=== PATIENT | male | born 1980 | race Caucasian/White ===

== ENCOUNTER 2023-10-05 07:03 | Emergency (ER) | payer MEDICAID, SELFPAY ==
[2023-10-05] VITALS (9 sets, daily range): BP systolic 128–138; BP diastolic 86–104; PULSE 69–100; RESP 16–20; TEMP 36.4–36.9; O2SAT 98–99; BMI 24.1
--- NOTE | ~2023-10-05 | XR_ITS ---
EXAMINATION: XR CHEST, 2 VIEWS CLINICAL INFORMATION: Chest pain COMPARISON: None. TECHNIQUE: PA and lateral views of the chest were obtained. FINDINGS: Lungs are borderline hyperexpanded though clear. No consolidation, pneumothorax, or pleural effusion. Cardiac and mediastinal contours are normal. Pulmonary vasculature is unremarkable. Trachea is midline. Osseous structures are unremarkable. XR/XR chest 2V IMPRESSION: No acute cardiopulmonary findings.
--- NOTE | 2023-10-05 07:08 | ECG_ITS ---
Test Reason : CHEST PAIN Blood Pressure : / mmHG Vent. Rate : 101 BPM Atrial Rate : 101 BPM P-R Int : 116 ms QRS Dur : 084 ms QT Int : 342 ms P-R-T Axes : 079 066 074 degrees QTc Int : 443 ms Sinus tachycardia Otherwise normal ECG No previous ECGs available Referred By: Gem Bullard Electronically Signed By:Zoltan Aparicio
--- NOTE | 2023-10-05 07:26 | ED_ITS ---
HPI - Chest Pain General Chief Complaint: Chest Pain Stated Complaint: chest discomfort, pain on L side of body Time Seen by Provider: 10/05/23 07:07 Source: patient Mode of arrival: ambulatory Limitations: no limitations History of Present Illness HPI narrative: Patient is a 43-year-old male who presents to the emergency department for evaluation of chest pain. He reports left anterior chest pain intermittently over the past 3 months. Described as a stabbing pressure-like pain. At times it lasts 2-3 hours before self-resolving, other times it may be more brief. He is unable to identify any exacerbating or alleviating factors. Was experiencing this pain while at work today and he was sent home, he states he needs a note to return back to work. At times the pain is associated with shortness of breath. He denies any known past medical history however he does not follow with a primary care doctor, he admits to a familial cardiac history but he is not able to provide much details. He admits to intranasal cocaine usage but states that he stopped approximately 2 months ago. He also admits to infrequent alcohol consumption, reports that he did drink yesterday, and states that he might drink once every few weeks, denies daily usage. He denies dizziness, lightheadedness, nausea, vomiting, abdominal pain, numbness or tingling of his extremities. Related Data Allergies Allergy/AdvReac Type Severity Reaction Status Date / Time sulfamethoxazole Allergy Severe KIDNEY Verified 10/05/23 07:18 [From BACTRIM] FAILURE trimethoprim [From BACTRIM] Allergy Severe KIDNEY Verified 10/05/23 07:18 FAILURE Iodinated Contrast Media Allergy Unknown UNKNOWN Verified 10/05/23 07:18 [IV DYE, IODINE CONTAINING CONTRAST ] Review of Systems 2 Review of Systems: Yes all other systems are reviewed and are negative [facility] Past Medical History Attestation statement: The following information was validated with the patient. Source: old records reviewed Social History Social History Alcohol intake: current Alcohol intake frequency: a few times a month Use of substances other than those prescribed or required for medical reasons: Yes Substance Use Type: Crack/Cocaine Substance Use Frequency: Monthly Substance Use Frequency Other:: Pt quit using 2 months ago Last Used Substance: Weeks (ago) Advance Directives: No Do you have a plan to hurt others: No Plan Physical Exam 2 Vital Signs: Vital Signs: Last Vital Signs Temp 98.4 F 10/05/23 10:42 Pulse 69 10/05/23 10:42 Resp 20 10/05/23 10:42 BP 134/96 H 10/05/23 10:42 Pulse Ox 99 10/05/23 10:42 O2 Del Method Room Air 10/05/23 10:42 BMI result Body Mass Index 24.1 Appearance: Alert.?Oriented to person, place and time. No acute distress.?Normal affect. Eyes: Pupils equal, round and reactive to light.? ENT: Pharynx normal.?? Neck: Normal inspection.? Neck supple.?? CVS: Heart sounds normal. Normal heart rate and rhythm.? Pulses normal.?? Respiratory: No respiratory distress.? Lung sounds clear to auscultation bilaterally?? Abdomen: Soft and non-tender. Normoactive bowel sounds. Skin: Skin warm and dry.? Normal skin color.? Extremities: No lower extremity edema.? No calf ttp? Neuro: Moves all extremities spontaneously. Sensation intact bilaterally. CN II- XII intact. No focal neuro deficits. Ambulates with normal steady gait. Course Reevaluation(s) Reevaluation #1: Labs notable for a mild [place], BUN 10 creatinine 1.55, however no baseline for comparison, he does admit that he does not drink a lot of water throughout the day. D-dimer is negative, unlikely pulmonary embolism, would defer CT angio of the chest for further evaluation he has no hypoxia tachypnea respiratory distress. High sensitive troponin is below detectable limits, his EKGs without acute ischemic findings though he is mildly tachycardic. Patient will receive 1 L normal saline IV fluids, will obtain repeat chemistries to assure improvement of creatinine in addition to delta troponin. Chest x-ray is without acute pathology, no evidence of pneumothorax or pneumonia. Viral panel is negative. Reevaluation #2: Serum creatinine 1.27 after receiving IV fluids, patient was encouraged to increase oral fluids especially during warm weather., delta troponin is flat, EKG non ischemic, pain unlikely secondary to ACS. Pain is much improved when compared to arrival. At this time I feel he is stable for discharge outpatient follow-up, reviewed worrisome signs and symptoms that would warrant re- evaluation in the emergency department. All questions answered. Medications Administered Discontinued Medications Generic Name Dose Route Start Last Admin Trade Name Freq PRN Reason Stop Dose Admin Sodium Chloride 1,000 mls @ 999 mls/hr 10/05/23 10:00 10/05/23 10:52 Ns IV 10/05/23 11:00 Infused .Q1H1M JACE Infusion Nitroglycerin 0.5 inch 10/05/23 07:56 10/05/23 08:13 Nitroglycerin 2 % Oint 1 Gm Packet TRANSDERMA 10/05/23 07:57 0.5 inch ONCE ONE Administration Medical Decision Making Medical Decision Making [facility] Narrative: Patient is a 43-year-old male with no reported past medical history presenting to emergency department for evaluation of intermittent left anterior chest pain as per HPI. At the time my examination he appears overall well, he is mildly tachycardic, no respiratory distress, he is afebrile, he is able to speak clear full sentences. Pain does not appear to be reproducible upon palpation. He admits to infrequent substance usage as per HPI. Will obtain CBC to evaluate for leukocytosis/ anemia, CMP and lipase to evaluate for abnormal electrolytes /abnormal renal function/ abnormal hepatic/biliary function, EKG and troponin to evaluate for ischemia/ACS. Chest x-ray to evaluate for consolidation/ infiltrate/ mass/ pulmonary congestion and Urinalysis. Differential Diagnosis Differential Diagnoses: The differential diagnosis associated with the presentation includes (ACS, pulmonary embolism, gastritis, musculoskeletal pain, viral syndrome) Admission/Observation Consideration of admission/observation: Escalation of care including admission/observation considered Lab Data [facility] Lab Attestation statement: I reviewed the patient's lab results. 10/05/23 07:50 10/05/23 10:56 Labs: Lab Results 10/05/23 10/05/23 10/05/23 Range/Units 07:50 08:44 09:19 WBC 6.0 (4.8-10.8) X10*3/uL RBC 6.20 H (4.60-5.80) X10*6/uL Hgb 18.1 H (14.0-18.0) g/dl Hct 51.6 (42.0-52.0) % MCV 83.2 (80.0-98.0) fL MCH 29.2 (27.0-33.0) pg MCHC 35.1 (31.0-36.0) g/dl RDW 13.1 (11.0-16.0) % Plt Count 213 (160-400) X10*3/uL MPV 9.8 (9.4-12.4) fL Immature Gran % (Auto) 0.3 (0.0-0.4) % Neut % (Auto) 61.4 (45-73) % Lymph % (Auto) 30.0 (20-40) % Snyder % (Auto) 7.7 (2-11) % Eos % (Auto) 0.3 (0-4) % Baso % (Auto) 0.3 (0-2) % Lymph # (Auto) 1.8 (1.2-4.9) X10*3/uL Snyder # (Auto) 0.5 (0.1-1.2) X10*3/uL Eos # (Auto) 0.0 (0.0-0.4) X10*3/uL Baso # (Auto) 0.0 (0.0-0.2) X10*3/uL Abs Immat Gran (auto) 0.02 (0.00-0.03) X10*3/uL Absolute Neuts (auto) 3.7 (2.0-8.3) x10*3/uL Absolute Nucleated RBC 0.000 (0.0-0.012) X10*3/uL Nucleated RBC % (auto) 0.0 (0.0-0.2) /100WBC PT 12.1 (11.1-13.3) SEC INR 1.0 (0.9-1.1) D-Dimer High Sensitivty < 150 NG/ML Sodium 140 (135-145) mmol/L Potassium 3.8 (3.3-5.1) mmol/L Chloride 106 (96-108) mmol/L Carbon Dioxide 22 (22-29) mmol/L Anion Gap 16 (12-20) BUN 10 (9-16) mg/dL Creatinine 1.55 H (0.5-1.4) mg/dL Estim Creat Clear Calc 57.4 Estimated GFR 49 Random Glucose 92 (60-115) mg/dL Calcium 10.2 (8.4-10.2) mg/dL Magnesium 2.0 (1.6-2.6) mg/dL Total Bilirubin 1.0 (0.0-1.0) mg/dL AST 17 (5-37) U/L ALT 17 (0-40) U/L Alkaline Phosphatase 71 (39-117) U/L Troponin I High Sens < 2.7 (<3.5-35.0) ng/L Total Protein 7.7 (6.5-8.0) g/dL Albumin 4.5 (3.5-5.0) g/dL Lipase 25 (8-78) U/L Urine Color Dark Yellow Urine Appearance Clear Urine pH 6.0 (5.0-9.0) Ur Specific [place] 1.020 (1.005-1.025) Urine Protein 30 (1+) H (Neg-Trace) mg/dL Urine Glucose (UA) Negative (Negative) mg/dL Urine Ketones 15 (Negative) mg/dL Urine Blood Negative (Negative) Urine Nitrite Negative (Negative) Ur Leukocyte Esterase Trace H (Negative) Urine RBC 0-2 (0-2) /HPF Urine WBC 0-5 (0-5) /HPF Ur Squamous Epith Cells 0-2 (0-2) /HPF Urine Bacteria None Seen (None Seen) Hyaline Casts 3-5 (0-2) /LPF Urine Opiates Screen Not Detected (Not Detect) Ur Buprenorphine Scrn Not Detected (Not Detect) ng/mL Ur Oxycodone Screen Not Detected (Not Detect) ng/mL Urine Methadone Screen Not Detected (Not Detect) ng/mL Urine Fentanyl Screen Not Detected (Not Detect) Ur Barbiturates Screen Not Detected (Not Detect) Ur Phencyclidine Scrn Not Detected (Not Detect) Ur Amphetamines Screen Not Detected (Not Detect) U Benzodiazepines Scrn Not Detected (Not Detect) Urine Cocaine Screen Not Detected (Not Detect) U Marijuana (THC) Screen POSITIVE H (Not Detect) Influenza Type A (PCR) NEGATIVE (Negative) Influenza Type B (PCR) NEGATIVE (Negative) RSV RNA Qual (PCR) NEGATIVE (Negative) SARS-CoV-2 RNA (RT-PCR) NEGATIVE (Negative) 10/05/23 Range/Units 10:56 WBC (4.8-10.8) X10*3/uL RBC (4.60-5.80) X10*6/uL Hgb (14.0-18.0) g/dl Hct (42.0-52.0) % MCV (80.0-98.0) fL MCH (27.0-33.0) pg MCHC (31.0-36.0) g/dl RDW (11.0-16.0) % Plt Count (160-400) X10*3/uL MPV (9.4-12.4) fL Immature Gran % (Auto) (0.0-0.4) % Neut % (Auto) (45-73) % Lymph % (Auto) (20-40) % Snyder % (Auto) (2-11) % Eos % (Auto) (0-4) % Baso % (Auto) (0-2) % Lymph # (Auto) (1.2-4.9) X10*3/uL Snyder # (Auto) (0.1-1.2) X10*3/uL Eos # (Auto) (0.0-0.4) X10*3/uL Baso # (Auto) (0.0-0.2) X10*3/uL Abs Immat Gran (auto) (0.00-0.03) X10*3/uL Absolute Neuts (auto) (2.0-8.3) x10*3/uL Absolute Nucleated RBC (0.0-0.012) X10*3/uL Nucleated RBC % (auto) (0.0-0.2) /100WBC PT (11.1-13.3) SEC INR (0.9-1.1) D-Dimer High Sensitivty NG/ML Sodium 140 (135-145) mmol/L Potassium 4.1 (3.3-5.1) mmol/L Chloride 108 (96-108) mmol/L Carbon Dioxide 22 (22-29) mmol/L Anion Gap 14 (12-20) BUN 10 (9-16) mg/dL Creatinine 1.27 (0.5-1.4) mg/dL Estim Creat Clear Calc 70.1 Estimated GFR > 60 Random Glucose 86 (60-115) mg/dL Calcium 9.0 D (8.4-10.2) mg/dL Magnesium (1.6-2.6) mg/dL Total Bilirubin (0.0-1.0) mg/dL AST (5-37) U/L ALT (0-40) U/L Alkaline Phosphatase (39-117) U/L Troponin I High Sens < 2.7 (<3.5-35.0) ng/L Total Protein (6.5-8.0) g/dL Albumin (3.5-5.0) g/dL Lipase (8-78) U/L Urine Color Urine Appearance Urine pH (5.0-9.0) Ur Specific [place] (1.005-1.025) Urine Protein (Neg-Trace) mg/dL Urine Glucose (UA) (Negative) mg/dL Urine Ketones (Negative) mg/dL Urine Blood (Negative) Urine Nitrite (Negative) Ur Leukocyte Esterase (Negative) Urine RBC (0-2) /HPF Urine WBC (0-5) /HPF Ur Squamous Epith Cells (0-2) /HPF Urine Bacteria (None Seen) Hyaline Casts (0-2) /LPF Urine Opiates Screen (Not Detect) Ur Buprenorphine Scrn (Not Detect) ng/mL Ur Oxycodone Screen (Not Detect) ng/mL Urine Methadone Screen (Not Detect) ng/mL Urine Fentanyl Screen (Not Detect) Ur Barbiturates Screen (Not Detect) Ur Phencyclidine Scrn (Not Detect) Ur Amphetamines Screen (Not Detect) U Benzodiazepines Scrn (Not Detect) Urine Cocaine Screen (Not Detect) U Marijuana (THC) Screen (Not Detect) Influenza Type A (PCR) (Negative) Influenza Type B (PCR) (Negative) RSV RNA Qual (PCR) (Negative) SARS-CoV-2 RNA (RT-PCR) (Negative) Independent Interpretation I performed an independent interpretation of an: EKG and Plain X-Ray (No infiltrate or consolidations) Interpretation: Rate: 101 Rhythm:? Sinus tachycardia [place]:? Normal Normal P waves.? Normal [place].?? Normal QRS complex.?? ST T wave :??No ST elevation, no ST depression, no T-wave inversion qTC: 443 prior studies:? No prior available for review The study has been interpreted contemporaneously by me. Radiology Impression Discussion of test interpretation with radiology: I have reviewed the radiologist's reading. Radiologist Impression: XR/XR chest 2V IMPRESSION: No acute cardiopulmonary findings. Discharge Plan Discharge Clinical Impression: Chest pain Patient Disposition: Home, Self-Care Additional Instructions: You can take ibuprofen 200 mg, 3 tablets (600mg) every 6-8 hours as needed for pain, in addition to Tylenol 500 mg, 2 tablets (1,000mg) every 4-6 hours as needed for pain, but not to exceed 3 doses daily (3,000mg).? Please be sure that you are staying well hydrated and drinking plenty of fluids especially during these warm summer months. It is important that you follow-up closely with the primary care provider. You may return back to emergency department any new or worsening symptoms or concerns. Referrals: Physician,None [Primary Care Provider] - Stand Alone Forms: Work/School Release Print Language: [place]
[2023-10-05 07:56] LABS: MANUAL DIFF FLAG NO
[2023-10-05 07:57] LABS: Basophils Percent Auto 0.3 % (0-2); Eosinophils Percent Auto 0.3 % (0-4); Hematocrit 51.6 % (42.0-52.0); Hemoglobin 18.1 g/dl (14.0-18.0); Imm Gran Abs Auto 0.02 X10*3/uL (0.00-0.03); Imm Gran Pct Auto 0.3 % (0.0-0.4); Lymphocytes Absolute Auto 1.8 X10*3/uL (1.2-4.9); Mean Corpuscular HGB Conc 35.1 g/dl (31.0-36.0); Mean Corpuscular Hemoglobin 29.2 pg (27.0-33.0); Mean Corpuscular Volume 83.2 fL (80.0-98.0); Mean Platelet Volume 9.8 fL (9.4-12.4); Monocytes Absolute Auto 0.5 X10*3/uL (0.1-1.2); Monocytes Percent Auto 7.7 % (2-11); Neutrophils Absolute Auto 3.7 x10*3/uL (2.0-8.3); Neutrophils Percent Auto 61.4 % (45-73); Platelet Count 213 X10*3/uL (160-400); Red Cell Distribution Width 13.1 % (11.0-16.0)
[2023-10-05 08:08] LABS: Prothrombin Time 12.1 SEC (11.1-13.3)
[2023-10-05] MEDS: Nitroglycerin 2 % Oint 1 GM Packet 0.5 INCH TRANSDERMA (08:13)
[2023-10-05 08:23] LABS: Alanine Aminotransferase 17 U/L (0-40); Albumin Level 4.5 g/dL (3.5-5.0); Alkaline Phosphatase 71 U/L (39-117); Anion Gap 16 (12-20); Aspartate Amino Transferase 17 U/L (5-37); Blood Urea Nitrogen 10 mg/dL (9-16); Calcium 10.2 mg/dL (8.4-10.2); Carbon Dioxide 22 mmol/L (22-29); Chloride 106 mmol/L (96-108); Creatinine Clr Calc Pharmacy 57.4; Estimated Glomerular Filt Rate 49; Glucose Random 92 mg/dL (60-115); Lipase 25 U/L (8-78); Potassium 3.8 mmol/L (3.3-5.1); Sodium 140 mmol/L (135-145); Total Protein 7.7 g/dL (6.5-8.0)
[2023-10-05 08:33] LABS: Troponin-I High Sensitivity < 2.7 ng/L (<3.5-35.0)
[2023-10-05 08:58] LABS: D Dimer High Sensitivity < 150 NG/ML
[2023-10-05 09:16] LABS: Influenza A PCR NEGATIVE (Negative); Influenza B PCR NEGATIVE (Negative); Resp Syncy Virus RNA Qual PCR NEGATIVE (Negative); SARS COV2 PCR INHOUSE NEGATIVE (Negative)
[2023-10-05 09:29] LABS: Appearance Urine Clear; Color Urine Dark Yellow; Glucose Urine UA Negative (Negative); Leukocyte Esterase Urine Trace (Negative); Nitrite Urine Negative (Negative); UMIC TRIGGER UACC YES; Urine Blood Negative (Negative); Urine Ketones 15 mg/dL (Negative); Urine Protein 30 (1+) mg/dL (Neg-Trace)
[2023-10-05 09:34] LABS: Bacteria Urine None Seen (None Seen); RBC Urine 0-2 /HPF (0-2); Squamous Epithelial Cell Urine 0-2 /HPF (0-2); WBC Urine 0-5 /HPF (0-5)
--- NOTE | 2023-10-05 09:36 | PC.NURSE ---
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 Pt medicated per MAR for pain, has since decreased from a 10 to a 6. Pt did feel dizzy/headache from the 0.5 nitro paste given, has since subsided. BPs have been updated, pt was hypertensive (138/104), most recent blood pressure 128/94, BPs cycling q 5 min d/t nitro paste given. Pt family member at bedside, call forbes within reach, all needs met at this time.
[2023-10-05 09:39] LABS: Amphetamine Screen Urine Not Detected (Not Detect); Barbiturates, Urine Not Detected (Not Detect); Benzodiazepines Screen Urine Not Detected (Not Detect); Buprenorphine Scr Not Detected (Not Detect); Cannabinoid Screen Urine POSITIVE (Not Detect); Cocaine Screen Urine Not Detected (Not Detect); Fentanyl, urine Not Detected (Not Detect); Methadone Screen, Urine Not Detected (Not Detect); Opiate Screen Urine Not Detected (Not Detect); Oxycodone Screen Urine Not Detected (Not Detect); Phencyclidine Screen Urine Not Detected (Not Detect)
[2023-10-05] MEDS: 0.9 % Sodium Chloride 1,000 ML 999 ML IV (09:51)
--- NOTE | 2023-10-05 10:09 | PC.NURSE ---
Repeat labs to be obtained after liter of fluids is finished, pt aware of ongoing plan of care, call forbes within reach, family at bedside.
[2023-10-05 11:18] LABS: Anion Gap 14 (12-20); Blood Urea Nitrogen 10 mg/dL (9-16); Carbon Dioxide 22 mmol/L (22-29); Chloride 108 mmol/L (96-108); Creatinine Clr Calc Pharmacy 70.1; Estimated Glomerular Filt Rate > 60; Glucose Random 86 mg/dL (60-115); Potassium 4.1 mmol/L (3.3-5.1); Sodium 140 mmol/L (135-145)
[2023-10-05 11:24] LABS: Troponin-I High Sensitivity < 2.7 ng/L (<3.5-35.0)
== END 2023-10-05 12:05 | disposition home or self-care (01) ==
PROVIDERS: Nurse Practitioner Family; Emergency Provider Emergency Medicine
DX: R07.9 Chest pain, unspecified (principal); R06.02 Shortness of breath; Z03.818 Encounter for observation for suspected exposure to other biological agents ruled out; R00.0 Tachycardia, unspecified
CPT/HCPCS: 0241U; 36415; 71046; 80048; 80053; 80307; 81001; 83690; 83735; 84484; 85025; 85379; 85610; 93005; 96361; 96374; 99284; 99285; J1885

== ENCOUNTER → 2023-10-05 07:08 | Outpatient (BNV) | payer MEDICAID, SELFPAY | PROVIDERS: Emergency Provider Emergency Medicine; Visit Provider Internal Medicine Cardiovascular Disease | DX: R07.9 Chest pain, unspecified (principal) | CPT/HCPCS: 93010 ==

== ENCOUNTER 2023-10-09 19:00 | Emergency (ER) | payer OTHER, MEDICAID, SELFPAY ==
[2023-10-09 19:04] VITALS: BP 143/93; PULSE 85; RESP 18; TEMP 36.4; O2SAT 95; BMI 23.5
--- NOTE | 2023-10-09 19:41 | ED_ITS ---
HPI - Skin/Abscess/Foreign Bdy General Chief complaint: Skin/Abscess/Foreign Body Stated complaint: RT hand inj/lac Time Seen by Provider: 10/09/23 19:06 Related Data Allergies Allergy/AdvReac Type Severity Reaction Status Date / Time sulfamethoxazole Allergy Severe KIDNEY Verified 10/09/23 19:07 [From BACTRIM] FAILURE trimethoprim [From BACTRIM] Allergy Severe KIDNEY Verified 10/09/23 19:07 FAILURE Iodinated Contrast Media Allergy Unknown UNKNOWN Verified 10/09/23 19:07 [IV DYE, IODINE CONTAINING CONTRAST ] PMFSH Social History Social History Alcohol intake: current Alcohol intake frequency: a few times a month Substance Use Type: Crack/Cocaine Advance Directives: No Advance Directives Information Provided: No Physical Exam Vital Signs: Vital Signs: Last Vital Signs Temp 97.6 F 10/09/23 19:04 Pulse 85 10/09/23 19:04 Resp 18 10/09/23 19:04 BP 143/93 H 10/09/23 19:04 Pulse Ox 95 10/09/23 19:04 O2 Del Method Room Air 10/09/23 19:04 BMI result Body Mass Index 23.5 Discharge Plan Discharge Print Language: [place]ill[place]
--- NOTE | 2023-10-09 19:42 | ED_ITS ---
HPI - Burn/Smoke Inhalation General Chief complaint: Skin/Abscess/Foreign Body Stated complaint: RT hand inj/lac Time Seen by Provider: 10/09/23 19:06 Source: patient Mode of arrival: ambulatory Limitations: no limitations History of Present Illness HPI Narrative: Patient is a 43-year-old male who presents emergency department for evaluation. He is right-hand dominant, reports while at work he was attempting to clean the oil from a prior, he was using a device to do so but reports that his hand accidentally slipped and submerged in 2 hot oil. This occurred approximately 90 minutes prior to arrival. He reports 8/10 pain to the right hand. He has no open wounds lesions or blistering, there is very mild erythema. He has full range of motion to the fingers as well as the wrist. He denies any numbness or tingling. Related Data Previous Rx's ?Medication ?Instructions ?Recorded bacitracin 500 unit/gram topical 1 appl topical BID #28 grams 10/09/23 ointment Allergies Allergy/AdvReac Type Severity Reaction Status Date / Time sulfamethoxazole Allergy Severe KIDNEY Verified 10/09/23 19:07 [From BACTRIM] FAILURE trimethoprim [From BACTRIM] Allergy Severe KIDNEY Verified 10/09/23 19:07 FAILURE Iodinated Contrast Media Allergy Unknown UNKNOWN Verified 10/09/23 19:07 [IV DYE, IODINE CONTAINING CONTRAST ] Review of Systems Review of Systems: Yes all other systems are reviewed and are negative [facility] Past Medical History Attestation statement: The following information was validated with the patient. Source: old records reviewed Social History Social History Alcohol intake: current Alcohol intake frequency: a few times a month Substance Use Type: Crack/Cocaine Advance Directives: No Advance Directives Information Provided: No Physical Exam Vital Signs: Vital Signs: Last Vital Signs Temp 97.6 F 10/09/23 19:04 Pulse 85 10/09/23 19:04 Resp 18 10/09/23 19:04 BP 143/93 H 10/09/23 19:04 Pulse Ox 95 10/09/23 19:04 O2 Del Method Room Air 10/09/23 19:04 BMI result Body Mass Index 23.5 Appearance: Alert.?Oriented to person, place and time. No acute distress.?Normal affect. CVS: Heart sounds normal. Normal heart rate and rhythm.? Pulses normal.?? Respiratory: No respiratory distress.? Lung sounds clear to auscultation bilaterally?? Abdomen: Soft and non-tender. Normoactive bowel sounds. Skin: Skin warm and dry.? Normal skin color.? Very mild blanchable erythema of the dorsal aspect of the right hand. No blistering, no lesions Extremities: No lower extremity edema.? Neuro: Moves all extremities spontaneously. Sensation intact bilaterally. Ambulates with normal steady gait. Medical Decision Making Medical Decision Making MDM Narrative: Patient is a 43-year-old male who presents emergency department for evaluation of an oil burn to the right hand that occurred while at work. Examination is consistent with a superficial burn to the hand; 1%. No circumferential erythema, banding, or blistering. Was irrigated extensively with cool tap water followed by normal saline. Skin is intact at this time. He has full range of motion to the wrist in the digits. Extremity is neurovascularly intact distally. At this time feel that he is stable for discharge, discussed strict return precautions, worrisome signs and symptoms that would warrant re- evaluation in the emergency department, topical bacitracin Differential Diagnosis Differential Diagnoses: The differential diagnosis associated with the presentation includes (See narrative above) External Record Review External record reviewed: Outpatient record Prescription Management I considered prescription management with: Antibiotic Discharge Plan Discharge Clinical Impression: Superficial burn of right hand Patient Disposition: Home, Self-Care Instructions: Superficial Burn (ED) Additional Instructions: Cleansed twice daily with warm water mild non scented soap. Apply bacitracin Follow-up with primary care doctor. Return back to emergency department any new or worsening symptoms or concerns. You can take ibuprofen 200 mg, 3 tablets (600mg) every 6-8 hours as needed for pain, in addition to Tylenol 500 mg, 2 tablets (1,000mg) every 4-6 hours as needed for pain, but not to exceed 3 doses daily (3,000mg).? Prescriptions: New bacitracin 500 unit/gram ointment 1 appl topical BID Qty: 28 0RF Print Language: [place]
--- NOTE | 2023-10-09 20:04 | PC.NURSE ---
pt burn on right hand cleansed with NS, patted dry. followed by bacitracin, nonstick dressing, kerlix and tape. pt tolerated procedure well- verbalizes understanding of DC teaching
[2023-10-09 20:05] VITALS: BP 143/93; PULSE 85; RESP 18; TEMP 36.4; O2SAT 95
== END 2023-10-09 20:05 | disposition home or self-care (01) ==
PROVIDERS: Emergency Provider Emergency Medicine
DX: T23.101A Burn of first degree of right hand, unspecified site, initial encounter (principal); T31.0 Burns involving less than 10% of body surface; X10.2XXA Contact with fats and cooking oils, initial encounter; Y93.G3 Activity, cooking and baking; Y92.89 Other specified places as the place of occurrence of the external cause; Y99.0 Civilian activity done for income or pay
CPT/HCPCS: 99283; 99284

== ENCOUNTER 2024-12-17 18:10 | Emergency (ER) | payer MEDICAID, SELFPAY ==
--- NOTE | ~2024-12-17 | XR_ITS ---
CLINICAL HISTORY: cough, body aches 2 view chest x-ray Comparison: CR/SR - XR CHEST 2 VIEWS - 10/05/23 07:23 EDT Findings: Normal size heart. Lungs are mildly hyperinflated. No consolidation, pleural effusion or pneumothorax. No acute fracture. IMPRESSION: 1. No acute findings. This document has been electronically signed by: Karlene Parra MD on 12/17/2024 21:28:49
--- NOTE | 2024-12-17 18:35 | ED.GENADULT ---
HPI - General Adult General Chief complaint: Upper Respiratory Symptoms Stated complaint: headache, sore throat, bodyaches, difficulty breat Time Seen by Provider: 12/17/24 21:05 Source: patient and old records reviewed Mode of arrival: ambulatory Limitations: no limitations History of Present Illness ED Provider: ALMITA COONEY narrative: 44 yo male with PMH of asthma but no recent bouts or use of inhaler who has been sick with body aches, cough, sputum, chills and sore throat. 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 He came due to the past week he is getting worse and not better. He can eat and drink MD complaint: URI Onset (ago): week(s) (1) Location: mouth and chest Radiation: non-radiation Severity: mild Quality: aching Pain Consistency: constant Relieving factors: none Exacerbating factors: none Associated symptoms: cough and loss of appetite Treatments prior to arrival: none Related Data Previous Rx's ?Medication ?Instructions ?Recorded bacitracin 500 unit/gram topical 1 appl topical BID #28 grams 10/09/23 ointment albuterol sulfate 90 mcg/actuation 2 puff inhalation QID PRN 12/17/24 aerosol inhaler shortness of breath or wheezing #6.7 grams amoxicillin 875 mg-potassium 1 tab PO BID #13 tabs 12/17/24 clavulanate 125 mg tablet doxycycline hyclate 100 mg capsule 100 mg PO BID 7 days #14 caps 12/17/24 Allergies Allergy/AdvReac Type Severity Reaction Status Date / Time sulfamethoxazole (From Allergy Severe KIDNEY Verified 12/17/24 18:38 BACTRIM) FAILURE trimethoprim (From BACTRIM) Allergy Severe KIDNEY Verified 12/17/24 18:38 FAILURE Iodinated Contrast Media (IV Allergy Unknown UNKNOWN Verified 12/17/24 18:38 DYE, IODINE CONTAINING CONTRAST ) Butterfinger Allergy Angioedema Uncoded 12/17/24 18:41 Review of Systems Review of Systems: Constitutional : positive Chills, positive fatigue, positive Malaise ENT/Mouth : positive sore throat, positive runny nose Eyes: No Discharge Cardiovascular : No Chest Pain, No SOB Respiratory : pos Cough, pos Sputum Gastrointestinal : No Nausea, No Vomiting, No Diarrhea Genitourinary : No Dysuria, No Urinary Frequency Musculoskeletal : positive Myalgia Skin : No rash Neuro : No Headache Yes all other systems are reviewed and are negative [facility] Past Medical History Attestation statement: The following information was validated with the patient. Source: old records reviewed Medical History (Updated 12/17/24 @ 21:35 by Silvia Sharma DO) Asthma Social History Social History Alcohol intake: current Alcohol intake frequency: a few times a month Substance Use Type: Crack/Cocaine Advance Directives: No Advance Directives Information Provided: Yes Physical Exam ED Vital Signs: Vital Signs - 24 hr 12/17/24 18:37 Temperature 98.2 F Pulse Rate 86 Respiratory Rate 20 Blood Pressure 124/75 Pulse Oximetry 97 Oxygen Delivery Method Room Air BMI result Body Mass Index 24.6 Appearance: Alert. Oriented X3. No acute distress. Eyes: Pupils equal, round and reactive to light. ENT: Pharynx mild erythema no exudates, tongue is midline. Neck: Normal inspection. Neck supple. CVS: Normal heart rate and rhythm. Pulses normal. Respiratory: No respiratory distress. Breath sounds R base diminished and fine rales Abdomen: Soft and nontender. Skin: Skin warm and dry. Normal skin color. Extremities: No lower extremity edema. Neuro: Oriented X 3. No motor deficit. No sensory deficit. CN2-12 intact Course Course Course Narrative: This is a rapid medical exam performed by Brianna Plascencia NP: Additional HPI, ROS, PE not included below will be deferred to primary provider. Patient is a 44y/o M presenting with complaint of sore throat, headache, chills, body aches x 1 week. Plan: viral and strep swabs, cxr Medical Decision Making Medical Decision Making [facility] Narrative: 44 yo male with PMH of asthma here ill x 1 week with concern for pneumonia on exam. He has no other risk factors other than sick contacts at work. He is well hydrated and in no resp distress. Will obtain CXR and viral panel. Start on CAP coverage pending CXR Differential Diagnosis Differential Diagnoses: The differential diagnosis associated with the presentation includes pneumonia, bronchitis, viral syndrome Admission/Observation Consideration of admission/observation: Escalation of care including admission/observation considered tolerating PO no resp distress Lab Data [facility] Lab Attestation statement: I reviewed the patient's lab results. Labs: Lab Results 12/17/24 Range/Units 18:47 COVID-19 (YOLY) Negative (Negative) COVID-19 Clin Com See Note Influenza Type A (MEHDI) Negative (Negative) Influenza Type B (MEHDI) Negative (Negative) Influenza A & B Note See Note S. pyogenes GrpA MEHDI Negative (Negative) Independent Interpretation I performed an independent interpretation of an: Plain X-Ray (RML opacity) Radiology Impression Discussion of test interpretation with radiology: I have reviewed the radiologist's reading. External Record Review External record reviewed: Outpatient record Prescription Management I considered prescription management with: Antibiotic and Other Discharge Plan Discharge Clinical Impression: CAP (community acquired pneumonia) Qualifiers: Laterality: right Lung location: middle lobe of lung Qualified Code(s): J18.9 - Pneumonia, unspecified organism Patient Disposition: Home, Self-Care Instructions: Community Acquired Pneumonia (ED) Additional Instructions: negative for covid, flu, rsv, strep throat chest xray shows pneumonia return for fevers, vomiting, unable to breathe, worsening symptoms or any other concerns rest and stay hydrated On amoxicillin-clavulanate, softer bowel movements are to be expected. Call your provider if you move your bowels more than 4 times a day, your bowel movements are almost all liquid, or you get a rash.? On doxycycline, do not take pills immediately before going to bed and swallow pills with plenty of water. Avoid direct sunlight, iron, antacids, and Pepto Bismol. Call your provider if you develop new ringing in your ears, new problems hearing, dizziness, difficulty swallowing, rash, abdominal discomfort, nausea, or diarrhea.? Prescriptions: New doxycycline hyclate 100 mg capsule 100 mg PO BID 7 Days Qty: 14 0RF albuterol sulfate 90 mcg/actuation HFA aerosol inhaler 2 puff inhalation QID PRN (Reason: shortness of breath or wheezing) Qty: 6.7 0RF amoxicillin-pot clavulanate 875-125 mg tablet 1 tab PO BID Qty: 13 0RF No Action bacitracin 500 unit/gram ointment 1 appl topical BID Qty: 28 0RF Stand Alone Forms: Work/School Release Print Language: Hong Konger
[2024-12-17 18:37] VITALS: BP 124/75; PULSE 86; RESP 20; TEMP 36.8; O2SAT 97; BMI 24.6
[2024-12-17 19:06] LABS: IDNOW Serial# 08D9AD1C; Strep A Nucleic Acid Negative (Negative)
[2024-12-17 19:12] LABS: IDNOW Serial# 58CA691E; Influenza B2 Negative (Negative)
[2024-12-17 19:13] LABS: COVID-19 Test Negative (Negative); IDNOW Serial# 55D5AD1C
[2024-12-17 21:33] VITALS: BP 124/75; PULSE 86; RESP 20; TEMP 36.8; O2SAT 97
== END 2024-12-17 21:34 | disposition home or self-care (01) ==
PROVIDERS: Registered Nurse Emergency; Emergency Provider Emergency Medicine
DX: J18.9 Pneumonia, unspecified organism (principal); R05.9 Cough, unspecified; R52 Pain, unspecified; J02.9 Acute pharyngitis, unspecified
CPT/HCPCS: 71046; 87502; 87635; 87651; 99282; 99283

== ENCOUNTER → 2024-12-17 18:36 | Outpatient (BNV) | payer MEDICAID, SELFPAY | PROVIDERS: Emergency Provider Emergency Medicine; Visit Provider Specialist | DX: R05.9 Cough, unspecified (principal); M79.10 Myalgia, unspecified site | CPT/HCPCS: 71046 ==

== ENCOUNTER 2024-12-22 12:26 | Emergency (ER) | payer MEDICAID, SELFPAY ==
[2024-12-22 12:49] VITALS: BP 133/73; PULSE 95; RESP 16; TEMP 36.7; O2SAT 95; BMI 24.8
--- NOTE | 2024-12-22 12:49 | ED.GENADULT ---
HPI - General Adult General Chief complaint: Upper Respiratory Symptoms Stated complaint: headache, congestion Time Seen by Provider: 12/22/24 19:35 Source: patient Mode of arrival: ambulatory Limitations: no limitations History of Present Illness ED Provider: Geovanny Rich HPI narrative: 44 yold male presents to the ED for heaache, boydaches, coughing, and congestion presents to the ED for contious symptoms and needs an excuse note for missing work. Patient states he needs more days off from work, and PCP states he has to come to the ED for work note. patient denies any chest pain or shorntess of breath. Related Data Previous Rx's ?Medication ?Instructions ?Recorded bacitracin 500 unit/gram topical 1 appl topical BID #28 grams 10/09/23 ointment albuterol sulfate 90 mcg/actuation 2 puff inhalation QID PRN 12/17/24 aerosol inhaler shortness of breath or wheezing #6.7 grams amoxicillin 875 mg-potassium 1 tab PO BID #13 tabs 12/17/24 clavulanate 125 mg tablet doxycycline hyclate 100 mg capsule 100 mg PO BID 7 days #14 caps 12/17/24 prednisone 20 mg tablet 40 mg (2 x 20 mg) PO DAILY 5 days 12/22/24 #10 tabs Allergies Allergy/AdvReac Type Severity Reaction Status Date / Time sulfamethoxazole (From Allergy Severe KIDNEY Verified 12/22/24 12:51 BACTRIM) FAILURE trimethoprim (From BACTRIM) Allergy Severe KIDNEY Verified 12/22/24 12:51 FAILURE Iodinated Contrast Media (IV Allergy Unknown UNKNOWN Verified 12/22/24 12:51 DYE, IODINE CONTAINING CONTRAST ) Butterfinger Allergy Angioedema Uncoded 12/17/24 18:41 Review of Systems Review of Systems: Coughing, headache, body ache Yes all other systems are reviewed and are negative PMFSH Past Medical History Medical History (Updated 12/23/24 @ 00:01 by Sixto Martinez) Asthma Social History Social History Alcohol intake: current Alcohol intake frequency: a few times a month Substance Use Type: Crack/Cocaine Advance Directives: No Advance Directives Information Provided: Yes Do you have a plan to hurt others: No Plan Physical Exam ED Vital Signs: Vital Signs - 24 hr 12/22/24 19:05 12/22/24 21:06 Temperature 0 F L Pulse Rate 73 73 Respiratory Rate 18 18 Blood Pressure 129/87 129/87 Pulse Oximetry 97 97 Oxygen Delivery Method Room Air Room Air BMI result Body Mass Index 24.8 Const General: cooperative, healthy appearing, comfortable, no acute distress, well developed, alert and awake [facility] Head: Yes normal to inspection, Yes No palpable skull fracture present, Yes normocephalic and Yes atraumatic Ears: hearing grossly normal bilaterally, external ears normal, TM's normal bilaterally, TM normal on the right, TM normal on the left, EAC's normal, mastoids normal and no periauricular adenopathy Throat: Yes posterior oropharynx normal, Yes tonsils normal and Yes uvula midline Eyes General: appearance normal, both eyes and all related structures Neck Neck: Yes normal visual inspection, Yes full ROM, Yes no lymphadenopathy, Yes no meningeal signs, Yes trachea midline, Yes supple, No anterior neck swelling and No tender Chest Chest palpation & inspection: normal inspection of the chest and normal palpation of entire chest wall Resp Effort & Inspection: normal respiratory effort Auscultation: wheezes expiratory wheezes (wheezing) Cardio Jugular venous distension: no JVD Heart sounds: S1 normal heart sound present and S2 normal heart sound present GI Inspection: Yes normal to inspection Palpation (GI): Soft to palpation, not firm, nontender, no guarding and not rigid General: Yes no CVA tenderness Back/Spine/Pelvis Back: no CVA tenderness and No back tenderness Skin General skin exam: no rashes or lesions noted, elasticity normal and turgor normal Neuro General: gait normal, tone normal, moves all extremities, Normal light touch and pain sensation, no meningeal signs, no focal motor deficits, CN's II-XI intact bilaterally and normal sensation to monofilament Extrem General: Yes normal to inspection, Yes full ROM and Yes capillary refill normal Psych Appearance: grossly normal, well kempt and not disheveled Course Course Course Narrative: This is a rapid medical exam performed by Brianna Plascencia NP: Additional HPI, ROS, PE not included below will be deferred to primary provider. Patient is a 44y/o M with history of asthma presenting with complaint of congestion, headache, body aches. Recently seen here and dx with pneumonia. Plan: strep and viral swabs, labs Medical Decision Making Medical Decision Making [facility] Narrative: 44 yold male with CAP and asthma presents to the ED for consistent URI Symptoms. Patient presently on antiobitcs. Vital signs normal. Lungs were positive for expiratory wheezing. 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 Patient informed to turkey picker albuterol inhaler finish antibiotics. Patient will be given steroids. Not suspecting PE, [place], pericarditis, CHF, [place], hypoxia, respiratory failure, or any other life-threatening etiology Differential Diagnosis Differential Diagnoses: The differential diagnosis associated with the presentation includes (Pneumonia URI) Admission/Observation Consideration of admission/observation: Escalation of care including admission/observation considered Lab Data 12/22/24 13:55 12/22/24 13:55 Labs: Lab Results 12/22/24 12/22/24 12/22/24 Range/Units 13:52 13:53 13:55 WBC 5.9 (4.8-10.8) X10*3/uL RBC 5.63 (4.60-5.80) X10*6/uL Hgb 16.2 (14.0-18.0) g/dl Hct 48.9 (42.0-52.0) % MCV 86.9 (80.0-98.0) fL MCH 28.8 (27.0-33.0) pg MCHC 33.1 (31.0-36.0) g/dl RDW 13.6 (11.0-16.0) % Plt Count 186 (160-400) X10*3/uL MPV 9.7 (9.4-12.4) fL Immature Gran % (Auto) 0.2 (0.0-0.4) % Neut % (Auto) 68.0 (45-73) % Lymph % (Auto) 25.1 (20-40) % [place] % (Auto) 6.0 (2-11) % Eos % (Auto) 0.2 (0-4) % Baso % (Auto) 0.5 (0-2) % Lymph # (Auto) 1.5 (1.2-4.9) X10*3/uL [place] # (Auto) 0.4 (0.1-1.2) X10*3/uL Eos # (Auto) 0.0 (0.0-0.4) X10*3/uL Baso # (Auto) 0.0 (0.0-0.2) X10*3/uL Abs Immat Gran (auto) 0.01 (0.00-0.03) X10*3/uL Absolute Neuts (auto) 4.0 (2.0-8.3) x10*3/uL Absolute Nucleated RBC 0.000 (0.0-0.012) X10*3/uL Nucleated RBC % (auto) 0.0 (0.0-0.2) /100WBC Sodium 143 (135-145) mmol/L Potassium 4.4 (3.3-5.1) mmol/L Chloride 107 (96-108) mmol/L Carbon Dioxide 29 (22-29) mmol/L Anion Gap 11 L (12-20) BUN 14 (9-16) mg/dL Creatinine 1.20 (0.5-1.4) mg/dL Estim Creat Clear Calc 73.4 Estimated GFR > 60 Random Glucose 95 (60-115) mg/dL Calcium 9.5 (8.4-10.2) mg/dL Total Bilirubin 0.3 (0.0-1.0) mg/dL AST 23 (5-37) U/L ALT 29 (0-40) U/L Alkaline Phosphatase 61 (39-117) U/L Total Protein 7.0 (6.5-8.0) g/dL Albumin 4.3 (3.5-5.0) g/dL COVID-19 (YOLY) Negative (Negative) COVID-19 Clin Com See Note Influenza Type A (MEHDI) Negative (Negative) Influenza Type B (MEHDI) Negative (Negative) Influenza A & B Note See Note S. pyogenes GrpA MEHDI Negative (Negative) Independent Historian Clinical information obtained from an independent historian. History obtained from or confirmed by: Other (Patient is) Prescription Management I considered prescription management with: Other (Prednisone) Discharge Plan Discharge Clinical Impression: Asthma Patient Disposition: Home, Self-Care Instructions: Asthma (ED) Additional Instructions: Recommend picking up your albuterol inhaler that was prescribed by previous ED provider. Finish the antibiotics. You will be discharged with prednisone. Recommend follow up with primary care provider. Return to the ED immediately for any chest pain, shortness of breath, coughing up blood, weakness, fever, chills, or any other concerning symptoms. COntinue using your albuterol inhaler you have at home. Prescriptions: New prednisone 20 mg tablet 40 mg PO DAILY 5 Days Qty: 10 0RF No Action doxycycline hyclate 100 mg capsule 100 mg PO BID 7 Days Qty: 14 0RF albuterol sulfate 90 mcg/actuation HFA aerosol inhaler 2 puff inhalation QID PRN (Reason: shortness of breath or wheezing) Qty: 6.7 0RF amoxicillin-pot clavulanate 875-125 mg tablet 1 tab PO BID Qty: 13 0RF bacitracin 500 unit/gram ointment 1 appl topical BID Qty: 28 0RF Referrals: Bee,[facility] [Primary Care Provider, Medical] - 2 days Referral Note: Pneumonia asthma Clinical Impression: Asthma Stand Alone Forms: Work/School Release Interventions: ED Discharge Assessment Last Done: 12/22/24 21:06 Discharge Date/Time: 12/22/24 21:06 Print Language: Moldovan
[2024-12-22 14:00] LABS: MANUAL DIFF FLAG NO
[2024-12-22 14:03] LABS: Hematocrit 48.9 % (42.0-52.0); Hemoglobin 16.2 g/dl (14.0-18.0); Imm Gran Abs Auto 0.01 X10*3/uL (0.00-0.03); Imm Gran Pct Auto 0.2 % (0.0-0.4); Lymphocytes Absolute Auto 1.5 X10*3/uL (1.2-4.9); Mean Corpuscular HGB Conc 33.1 g/dl (31.0-36.0); Mean Corpuscular Hemoglobin 28.8 pg (27.0-33.0); Mean Corpuscular Volume 86.9 fL (80.0-98.0); NRBC Abs Auto 0.000 X10*3/uL (0.0-0.012); NRBC Pct Auto 0.0 /100WBC (0.0-0.2); Platelet Count 186 X10*3/uL (160-400); Red Blood Count 5.63 X10*6/uL (4.60-5.80); White Blood Count 5.9 X10*3/uL (4.8-10.8)
[2024-12-22 14:17] LABS: COVID-19 Test Negative (Negative); IDNOW Serial# 16C4AD1C
[2024-12-22 14:19] LABS: Alanine Aminotransferase 29 U/L (0-40); Albumin Level 4.3 g/dL (3.5-5.0); Alkaline Phosphatase 61 U/L (39-117); Anion Gap 11 (12-20); Aspartate Amino Transferase 23 U/L (5-37); Blood Urea Nitrogen 14 mg/dL (9-16); Calcium 9.5 mg/dL (8.4-10.2); Carbon Dioxide 29 mmol/L (22-29); Chloride 107 mmol/L (96-108); Creatinine Clr Calc Pharmacy 73.4; Estimated Glomerular Filt Rate > 60; Potassium 4.4 mmol/L (3.3-5.1); Sodium 143 mmol/L (135-145); Total Protein 7.0 g/dL (6.5-8.0)
[2024-12-22 14:19] LABS: IDNOW Serial# 152EDE1D; Influenza B2 Negative (Negative)
[2024-12-22 14:25] LABS: IDNOW Serial# 16C4AD1C; Strep A Nucleic Acid Negative (Negative)
[2024-12-22 19:05] VITALS: BP 129/87; PULSE 73; RESP 18; O2SAT 97
--- OUTSIDE RECORDS SUMMARY | 2024-12-22 19:26 | XMS_ITS | Encounter Summary ---
Author Organization [employer] Address [address] [place] [address] Care Team Providers Care Collection Team Lead Name Role Phone Unavailable Primary Care Provider Unavailabl e Encounter Details Date Type Department Care Team (Late st Contact Info) Description 12/17/2024 Orders Only [facility] [place] External Provider, [facility] Social History Tobacco Use Types Packs/Day Years Used Date Smoking Tobacco: Every Day Cigarettes Passive Smoke Exposure: Past Smokeless Tobacco: Never Alcohol Use Standard Drinks/Week Comments Yes 0 (1 standard drink = 0.6 oz pur e alcohol) socially Housing Stability Answer Date Recorded What is your housing situation today? I do not have housing (Staying with others, in a hotel, in a long term, living outside on the street, on a beach, in a car, or in a park 12/18/[address] you li ve. Do you have problems with any of the following? Pests such as bugs, ants, or mice;Mold;Lead [place] or [place] 12/18/2022 Food Insecurity Answer Date Recorded Within the past 12 months, y ou worried that your food would run out before you got money to buy more: Often true 01/13/2023 Within the past 12 months,th e food you bought just didn't last and you didn't have enough money to get more: Often true 07/2022 Transportation Answer Date Recorded In the past 12 months, has l ack of transportation kept you from medical appts, meetings, work or from getting things needed for daily living? Yes, it has kept me from medical appointments or getting medications. 12/18/2022 Utilities Answer Date Recorded In the past 12 months, has t he electric, gas, oil or water company threatened to shut off services in your home? No 01/13/2023 Sex and Gender Information Value Date Recorded Sex Assigned at Male 10/29/2022 1:42 PM EDT Legal Sex Male 3:44 PM EDT Gender Identity Male 10/29/2022 1:42 PM EDT Sexual Orientation Bisexual 10/29/2022 1: 42 PM EDT Sexual Orientation Lamar 10/29/2022 1: 42 PM EDT documented as of this encounter Plan of Treatment Upcoming Encounters Date Type Department Care Team (Late st Contact Info) Description 12/23/2024 9:00 AM EDT Office Visit [facility] [address] [place], [place] [id number] Dilia Greer NP [address] [place] [address] documented as of this encounter Procedures Procedure Name Priority Date/Time Associated Diagnosis Comments XR CHEST 2 VIEWS Routine 12/17/2024 9:28 PM EDT documented in this encounter Results * XR Chest 2 Views (12/17/2024 9:28 PM EDT) Anatomical Region Laterality Modality Chest Radiographic Lori ging 12/17/2024 9:28 PM EDT Narrative 12/17/2024 9:30 PM EDT [address] [address] XRay Report Signed Patient: Jesse Trevino MR#: [id number] 76 : 1980 Acct:[id number] Age/Sex: 44 / M ADM Date: 12/17/24 Loc: .ED Attending Dr: Ordering Physician: Jackie Plascencia NP Date of Service: 12/17/24 Procedure(s): XR chest 2V Accession Number(s): [id number] cc: [facility]; Jackie Plasecncia NP Reason for Exam: cough, body aches CLINICAL HISTORY: cough, body aches 2 view chest x-ray Comparison: CR/SR - XR CHEST 2 VIEWS - 10/05/23 07:23 EDT Findings: Normal size heart. Lungs are mildly hyperinflated. No consolidation, pleural effusion or pneumothorax. No acute fracture. IMPRESSION: 1. No acute findings. This document has been electronically signed by: Karlene Parra MD on 12/17/2024 21:28:49 Dictated By: Karlene Parra MD Signed By: <Electronically signed by Karlene Parra MD in OV> 12/17/242129 DD/ 27 TD/TT: 12/17/242127 Tray Line Supervisor: Procedure Note Donotuseinterpreter, Image - 12/18/[address] [address] XRay Report Signed Patient: Jesse TrevinoMR#: [id number] : 1980Acct:[id number] Age/Sex: 44 / MADM Date: 12/17/24 Loc: HO.ED Attending Dr: Ordering Physician: Jackie Plascencia NP Date of Service: 12/17/24 Procedure(s): XR chest 2V Accession Number(s): [id number] cc: [facility]; Jackie Plascencia NP Reason for Exam: cough, body aches CLINICAL HISTORY: cough, body aches 2 view chest x-ray Comparison: CR/SR - XR CHEST 2 VIEWS - 10/05/23 07:23 EDT Findings: Normal size heart. Lungs are mildly hyperinflated. No consolidation, pleural effusion or pneumothorax. No acute fracture. IMPRESSION: 1. No acute findings. This document has been electronically signed by: Karlene Parra MD on 12/17/2024 21:28:49 Dictated By: Karlene Parra MD Signed By: <Electronically signed by Karlene Parra MD in OV> 12/17/242129 DD/ 27 TD/TT: 12/17/242127 Tray Line Supervisor: [facility] External Provider IMG XR PROCEDURES Edited Result - Final documented in this encounter Visit Diagnoses Not on filedocumented in this encounter
--- OUTSIDE RECORDS SUMMARY | 2024-12-22 19:27 | XMS_ITS | Encounter Summary ---
Author Organization [employer] Address [address] [place] [address] Care Team Providers Care Palletizer Name Role Phone Dilia Greer NP Primary Care Provider [phone] Reason for Visit * Reason Onset Date Comments Chartprep 12/22/2024 Encounter Details Date Type Department Care Team (Late st Contact Info) Description 12/22/2024 Telephone [facility] [address] [place] [address] Dilia Greer NP [address] [place] [address] Chartprep Social History Tobacco Use Types Packs/Day Years Used Date Smoking Tobacco: Every Day Cigarettes Passive Smoke Exposure: Past Smokeless Tobacco: Never Alcohol Use Standard Drinks/Week Comments Yes 0 (1 standard drink = 0.6 oz pur e alcohol) socially Housing Stability Answer Date Recorded What is your housing situation today? I do not have housing (Staying with others, in a hotel, in a custodial, living outside on the street, on a beach, in a car, or in a park 12/18/[address] you li ve. Do you have problems with any of the following? Pests such as bugs, ants, or mice;Mold;Lead [place] or [place] 12/18/2022 Food Insecurity Answer Date [...] the past 12 months, has t he [place], gas, oil or water company threatened to [...] PM EDT documented as of this encounter Miscellaneous Notes * Telephone Encounter - Annamarie Mustafa [place] - 12/22/2024 8:51 AM EDT Chart Prep Labs: not applicable Images: done Referrals: not applicable Vaccines due: Covid, Flu, PCV20, Tdap, Hep B, and HPV Screenings: HIV screening,Lipid panel,Alcohol/substance abuse,family planning Overdue care gaps: SBIRT, SDOH, PHQ-9, GABO-7, Oral health screening, and Tobacco documented in this encounter Plan of Treatment Upcoming Encounters Date Type Department Care Team (Late st Contact Info) Description 12/23/2024 9:00 AM EDT Office Visit [facility] [address] [place] [address] Dilia Greer NP [address] [place] [address] documented as of this encounter Visit Diagnoses Not on filedocumented in this encounter Care Teams Palletizer Relationship Specialty Start Date End Date Dilia Greer NP [address] [place] [address] PCP - General Family Medicine 12/22/24 documented as of this encounter
--- OUTSIDE RECORDS SUMMARY | 2024-12-22 19:27 | XMS_ITS | Clinical Summary ---
Author Organization [employer] Address [address] [facility] [address] 7[address] [place] [address] Care Team Providers Care Manifold Operator Name Role Phone Dilia Greer NP Primary Care Provider [phone] Allergies Active Allergy Reactions Criticality Noted Date Comments Sulfamethoxazole-Trimethoprim Anaphylaxis High 10/07 Iodinated Contrast Media Angioedema 10/08/2023 Medications cyclobenzaprine (Flexeril) 10 MG tablet Take 1 tablet (10 mg) by mouth 3 times daily for 10 days. 30 tablet 10/08/2023 Active Encounters Date Type Department Care Team Description 12/22/2024 Telephone [facility] MEDICINE [address] [place] [address] Dilia Greer NP Chartprep 12/17/2024 Orders Only [facility] External Provider, [facility] 12/16/2024 Patient Outreach [facility] MED & PEDS [address] [place] [address] Dilia Greer NP Pre-visit Planning ([facility] unable to reach [facility] ) 12/16/2024 Travel from Last 3 Months Family History Medical History Relation Name Comments Neurofibromatosis Father Heart attack Mother Hypertension Mother Stroke Mother Relation Name Status Comments Father Mother Social History Tobacco Use Types Packs/Day Years Used Date Smoking Tobacco: Every Day Cigarettes Passive Smoke Exposure: Past Smokeless Tobacco: Never Tobacco Cessation:Ready to Q uit: Yes Alcohol Use Standard Drinks/Week Comments Yes 0 (1 standard drink = 0.6 oz pur e alcohol) socially Housing Stability Answer Date Recorded What is your housing situation today? I do not have housing (Staying with others, in a hotel, in a retirement, living outside on the street, on a beach, in a car, or in a park 12/18/[address] you li ve. Do you have problems with any of the following? Pests such as bugs, ants, or mice;Mold;Lead [place] or [place] 12/18/2022 Food Insecurity Answer Date [...] Orientation [place] 10/29/2022 1: 42 PM EDT Last Filed Vital Signs Vital Sign Reading Time Taken Comments Blood Pressure 138/88 10/08/2023 1:48 PM EDT Pulse 87 10/08/2023 1:48 PM EDT Temperature 36.8 C (98.2 F) 10/08/2023 1:48 PM EDT Respiratory Rate 18 10/08/2023 1:48 PM EDT Oxygen Saturation 97% 10/08/2023 1:48 PM EDT Inhaled Oxygen Concentration - - Weight 69.9 kg (154 lb) 10/08/2023 1:48 PM EDT Height - - Body Mass Index - - Plan of Treatment Upcoming Encounters Date Type Department Care Team (Late st Contact Info) Description 12/23/2024 9:00 AM EDT Office Visit [facility] MEDICINE [address] [place] [address] Dilia Greer NP [address] [place] [address] Health Maintenance Due Date Last Done Comments Depression Screening 1980 HIV Screening 1980 Lipid Panel 1980 Alcohol/Substance Use Screening 1992 Family Planning (PISQ) 06/01/1995 HPV Vaccines (1 - Male 3-dos e series) 06/01/1995 Hepatitis C Screening 1998 DTaP/Tdap/Td Vaccines (1 - Tdap) 06/01/1999 Hepatitis B Vaccines (1 of 3 - 19+ 3-dose series) 06/01/1999 Pneumococcal Vaccine: Pediat rics (0 to 5 Years) and At-Risk Patients (6 to 49) Years (1 of 2 - PCV) 06/01/1999 SDOH Screening 11/14/2023 11/13/2022 Tobacco Screening 10/07/2024 10/08/2023 COVID-19 Vaccine (1 - 2023-2 5 season) 2024 Influenza Vaccine (#1) 2024 Disability Screening 12/16/2025 12/16/2024 Zoster Vaccines (1 of 2) 2030 RSV Patients and Pa tients Aged 60 years or older (1 - 1-dose 75+ series) 06/01/2055 HIB Vaccines Aged Out No longer eligi ble based on patient's age to complete this topic Hepatitis A Vaccines Aged Out No long er eligible based on patient's age to complete this topic IPV Vaccines Aged Out No longer eligi ble based on patient's age to complete this topic Meningococcal B Vaccine Aged Out No l onger eligible based on patient's age to complete this topic Meningococcal Vaccine Aged Out No noel cheri eligible based on patient's age to complete this topic RSV under 20 months Aged Out No longe r eligible based on patient's age to complete this topic Rotavirus Vaccines Aged Out No longer eligible based on patient's age to complete this topic Procedures Procedure Name Priority Date/Time Associated Diagnosis Comments XR CHEST 2 VIEWS Routine 12/17/2024 9:28 PM EDT from Last 3 Months Results * XR Chest 2 Views (12/17/2024 9:28 PM EDT) Anatomical Region Laterality Modality Chest Radiographic Lori ging 12/17/2024 9:28 PM EDT Narrative 12/17/2024 9:30 PM EDT [address] [address] XRay Report Signed Patient: Jesse Trevino MR#: [id number] 76 : 1980 Acct:[id number] Age/Sex: 44 / M ADM Date: 12/17/24 Loc: HO.ED Attending Dr: Ordering Physician: Jackie Plascencia NP Date of Service: 12/17/24 Procedure(s): XR chest 2V Accession Number(s): [id number] cc: [facility]; Jackie Plascencia NP Reason for Exam: [...] in OV> 12/17/242129 DD/ 27 TD/TT: 12/17/242127 Traffic Signal Repairer: Procedure Note Donotuseinterpreter, Image - 12/18/[address] [address] XRay Report Signed Patient: Jesse TrevinoMR#: [id number] [birth year] : 1980Acct:[id number] Age/Sex: 44 / MADM Date: 12/17/24 Loc: HO.ED Attending Dr: Ordering Physician: Jackie Plascencia NP Date of Service: 12/17/24 Procedure(s): XR chest 2V Accession Number(s): [id number] cc: [facility]; Jackie Plascencia NP Reason for Exam: [...] in OV> 12/17/242129 DD/ 27 TD/TT: 12/17/242127 Traffic Signal Repairer: [employer] External Provider IMG XR PROCEDURES Edited Result - Final from Last [address] [place] [address] [address] C3 Care Teams Manifold Operator Relationship Specialty Start Date End Date Dilia Greer NP [address] [place] [phone] PCP - General Family Medicine 12/22/24
--- OUTSIDE RECORDS SUMMARY | 2024-12-22 19:27 | XMS_ITS | Encounter Summary ---
Author Organization [employer] Address [address] [place] [address] Care Team Providers Care Architectural Wood Model Maker Name Role Phone Dilia Greer NP Primary Care Provider [phone] Reason for Visit * Reason Onset Date Comments Med Refill 01/08/2024 Encounter Details Date Type Department Care Team (Late st Contact Info) Description 01/08/2024 Refill [facility] [address] [place] [address] Omayra Jiménez FNP [address] [place] [address] Social History Tobacco Use Types Packs/Day Years Used Date Smoking Tobacco: Every Day Cigarettes Passive Smoke Exposure: Past Smokeless Tobacco: Never Alcohol Use Standard Drinks/Week Comments Yes 0 (1 standard drink = 0.6 oz pur e alcohol) socially Housing Stability Answer Date Recorded What is your housing situation today? I do not have housing (Staying with others, in a hotel, in a snf, living outside on the street, on a beach, in a car, or in a park 12/18/[address] you li ve. Do you have problems with any of the following? Pests such as bugs, ants, or mice;Mold;Lead [place] or [place] 12/18/2022 Food Insecurity Answer Date [...] the past 12 months, has t he [employer], gas, oil or water company threatened to [...] Description 12/23/2024 9:00 AM EDT Office Visit [facility] MEDICINE [address] [place] [address] Dilia Greer NP [address] [place] [phone] documented as of this encounter Visit Diagnoses Not on filedocumented in this encounter Care Teams Architectural Wood Model Maker Relationship Specialty Start Date End Date Dilia Greer NP [address] [place] [id number] PCP - General Family Medicine 12/22/24 documented as of this encounter
[2024-12-22 21:06] VITALS: BP 129/87; PULSE 73; RESP 18; TEMP -17.7; TEMP 0; O2SAT 97
== END 2024-12-22 21:06 | disposition home or self-care (01) ==
PROVIDERS: Registered Nurse Emergency; Emergency Provider Emergency Medicine Emergency Medical Services
DX: J45.909 Unspecified asthma, uncomplicated (principal); R51.9 Headache, unspecified; Z03.818 Encounter for observation for suspected exposure to other biological agents ruled out
CPT/HCPCS: 80053; 85025; 87502; 87635; 87651; 99282; 99283

== ENCOUNTER 2025-02-10 10:33 | Emergency (ER) | payer MEDICAID, SELFPAY ==
--- NOTE | ~2025-02-10 | XR_ITS ---
EXAMINATION: XR CHEST 1 VIEW HISTORY: COUGH COMPARISON: Comparison is made with the prior examination dated 12/17/2024. FINDINGS: A single PA view of the chest is submitted. The lungs are expanded and clear. There is no pleural effusion, pneumothorax, or pulmonary vascular congestion. The heart is normal in size. The bones are intact. XR/XR chest 1V IMPRESSION: No acute cardiopulmonary abnormality. Electronically signed by: Gideon Stallings MD 02/10/2025 11:36 AM [facility]
--- NOTE | ~2025-02-10 | XR_ITS ---
EXAMINATION: XR FOOT 3 OR MORE VIEWS RIGHT HISTORY: right toe/foot pain COMPARISON: There are no prior studies available for comparison. FINDINGS: Three views of the right foot are submitted. Osseous mineralization is normal. There is no fracture or dislocation. The joint spaces are preserved. The soft tissues are unremarkable. XR/XR foot RT min 3V IMPRESSION: Unremarkable examination of the right foot. Electronically signed by: Gideon Stallings MD 02/10/2025 11:34 AM [facility]
[2025-02-10 10:52] VITALS: BP 128/63; PULSE 82; RESP 20; TEMP 36.5; O2SAT 97; BMI 23.9
--- NOTE | 2025-02-10 11:02 | ED.GENADULT ---
HPI - General Adult General Chief complaint: Upper Respiratory Symptoms Stated complaint: diff breathing Time Seen by Provider: 02/10/25 12:06 Source: patient Mode of arrival: ambulatory Limitations: no limitations History of Present Illness ED Provider: Geovanny Rich HPI narrative: 44 yold male with pmh of bronchitis presents to the ED for coughing, vomitting, bodyaches, and also right great toe pain. Patient denies any recent trauma, redness, leg swelling, calf pain, recent long travel, recent surgery, or pleurisy Related Data Previous Rx's ?Medication ?Instructions ?Recorded bacitracin 500 unit/gram topical 1 appl topical BID #28 grams 10/09/23 ointment albuterol sulfate 90 mcg/actuation 2 puff inhalation QID PRN 12/17/24 aerosol inhaler shortness of breath or wheezing #6.7 grams amoxicillin 875 mg-potassium 1 tab PO BID #13 tabs 12/17/24 clavulanate 125 mg tablet doxycycline hyclate 100 mg capsule 100 mg PO BID 7 days #14 caps 12/17/24 prednisone 20 mg tablet 40 mg (2 x 20 mg) PO DAILY 5 days 12/22/24 #10 tabs albuterol sulfate 90 mcg/actuation 2 puff inhalation Q4-6H PRN 02/10/25 aerosol inhaler (Ventolin HFA) shortness of breath or wheezing #8.5 grams azithromycin 250 mg tablet See Rx Instructions PO .COMPLEX #6 02/10/25 tabs prednisone 20 mg tablet 40 mg (2 x 20 mg) PO DAILY 5 days 02/10/25 #10 tabs Allergies Allergy/AdvReac Type Severity Reaction Status Date / Time sulfamethoxazole (From Allergy Severe KIDNEY Verified 02/10/25 10:55 BACTRIM) FAILURE trimethoprim (From BACTRIM) Allergy Severe KIDNEY Verified 02/10/25 10:55 FAILURE Iodinated Contrast Media (IV Allergy Unknown UNKNOWN Verified 02/10/25 10:55 DYE, IODINE CONTAINING CONTRAST ) Butterfinger Allergy Angioedema Uncoded 12/17/24 18:41 Review of Systems Review of Systems: URI symptoms and right great toe pain Yes all other systems are reviewed and are negative PMFSH Past Medical History Medical History (Updated 02/11/25 @ 00:00 by Sixto Martinez) Asthma Social History Social History (Reviewed 12/17/24 @ 21:35 by DONNY Bucio Alcohol intake: current Alcohol intake frequency: a few times a month Substance Use Type: Crack/Cocaine Physical Exam ED Vital Signs: Vital Signs - 24 hr 02/10/25 10:52 Temperature 97.7 F Pulse Rate 82 Respiratory Rate 20 Blood Pressure 128/63 Pulse Oximetry 97 Oxygen Delivery Method Room Air BMI result Body Mass Index 23.9 Const General: cooperative, healthy appearing, comfortable, no acute distress, well developed, alert, awake and Physically active Orientation/consciousness: patient oriented x3 HENMT Head: Yes normal to inspection, Yes No palpable skull fracture present, Yes normocephalic, Yes atraumatic and Yes abrasion Ears: hearing grossly normal bilaterally, external ears normal, TM's normal bilaterally, TM normal on the right, TM normal on the left, mastoids normal and no periauricular adenopathy Throat: Yes posterior oropharynx normal, Yes tonsils normal and Yes uvula midline Eyes General: appearance normal, both eyes and all related structures Neck Neck: Yes normal visual inspection, Yes full ROM, Yes no lymphadenopathy, Yes no meningeal signs, Yes trachea midline, Yes supple, No anterior neck swelling and No tender Chest Chest palpation & inspection: normal inspection of the chest and normal palpation of entire chest wall Resp Effort & Inspection: normal respiratory effort and able to speak in complete sentences Auscultation: wheezes expiratory wheezes and throughout Cardio Jugular venous distension: no JVD Heart sounds: S1 normal heart sound present and S2 normal heart sound present GI Inspection: Yes normal to inspection Palpation (GI): Soft to palpation, not firm, nontender, no guarding and not rigid General: Yes no CVA tenderness Back/Spine/Pelvis Back: no CVA tenderness and No back tenderness Skin General skin exam: no rashes or lesions noted, elasticity normal and turgor normal Neuro General: patient oriented x3, gait normal, tone normal, moves all extremities, Normal light touch and pain sensation, no meningeal signs, no focal motor deficits, CN's II-XI intact bilaterally and normal sensation to monofilament Extrem Other: All extremities are normal. General: Yes normal to inspection, Yes full ROM and Yes capillary refill normal Psych Appearance: grossly normal, well kempt and not disheveled Course Course Course Narrative: RME: 44 year male presents to ED for URI symptoms. Patient states cough body aches chills. Patient has secondary complaint is mild right toe pain without any redness, bluish black discoloration or recent trauma. Swabs x-rays ordered Medical Decision Making Medical Decision Making [facility] Narrative: 44-year-old male to the ED for URI symptoms. COVID influenza strep chest x-ray came back negative. Positive for wheezing on lungs. We will be discharged with steroids and albuterol inhaler with cough medication. Foot negative for signs of osteomyelitis, cellulitis, DVT, count, arterial occlusion, compartment syndrome, or any other life-threatening etiology. not suspecting PE, AR, CHF, myocarditits, hypoxia, respiratory failure, or any other life threatening etiology. Differential Diagnosis Differential Diagnoses: The differential diagnosis associated with the presentation includes (COVID influenza pneumonia) Admission/Observation Consideration of admission/observation: Escalation of care including admission/observation considered Lab Data [facility] Lab Attestation statement: I reviewed the patient's lab results. Labs: Lab Results 02/10/25 Range/Units 11:18 Influenza Type A (PCR) NEGATIVE (Negative) Influenza Type B (PCR) NEGATIVE (Negative) RSV RNA Qual (PCR) NEGATIVE (Negative) SARS-CoV-2 RNA (RT-PCR) NEGATIVE (Negative) S. pyogenes GrpA MEHDI Negative (Negative) Independent Interpretation I performed an independent interpretation of an: Plain X-Ray Radiology Impression Discussion of test interpretation with radiology: I have reviewed the radiologist's reading. Independent Historian Clinical information obtained from an independent historian. History obtained from or confirmed by: Other (patient) Prescription Management I considered prescription management with: Other Discharge Plan Discharge Clinical Impression: Bronchitis Patient Disposition: Home, Self-Care Instructions: Acute Bronchitis (ED) Additional Instructions: Recommend follow up with the primary care provider. Return to the ED immediately for any chest pain, shortness of breath, coughing up blood, weakness, dizziness, calf pain, leg swelling, chest pain, shortness of breath, or any other concerning symptoms. Prescriptions: New prednisone 20 mg tablet 40 mg PO DAILY 5 Days Qty: 10 0RF albuterol sulfate [Ventolin HFA] 90 mcg/actuation HFA aerosol inhaler 2 puff inhalation Q4-6H PRN (Reason: shortness of breath or wheezing) Qty: 8.5 0RF azithromycin 250 mg tablet See Rx Instructions .ROUTE .COMPLEX Qty: 6 0RF Rx Instructions: For 250 mg dose pack: take 500 mg today (day 1), then 250 mg for 4 days (days 2-5) No Action doxycycline hyclate 100 mg capsule 100 mg PO BID 7 Days Qty: 14 0RF albuterol sulfate 90 mcg/actuation HFA aerosol inhaler 2 puff inhalation QID PRN (Reason: shortness of breath or wheezing) Qty: 6.7 0RF amoxicillin-pot clavulanate 875-125 mg tablet 1 tab PO BID Qty: 13 0RF bacitracin 500 unit/gram ointment 1 appl topical BID Qty: 28 0RF prednisone 20 mg tablet 40 mg PO DAILY 5 Days Qty: 10 0RF Referrals: [facility] [Primary Care Provider, Medical] - 2 days Referral Note: Bronchitis Clinical Impression: Bronchitis Stand Alone Forms: Work/School Release Interventions: ED Discharge Assessment Last Done: 02/10/25 13:06 Discharge Date/Time: 02/10/25 13:07 Print Language: Occitan
[2025-02-10 11:34] LABS: IDNOW Serial# 58CA691E; Strep A Nucleic Acid Negative (Negative)
[2025-02-10 12:00] LABS: Resp Syncy Virus RNA Qual PCR NEGATIVE (Negative); SARS COV2 PCR INHOUSE NEGATIVE (Negative)
[2025-02-10 13:06] VITALS: BP 128/63; PULSE 82; RESP 20; TEMP 36.5; O2SAT 97
--- OUTSIDE RECORDS SUMMARY | 2025-02-10 14:56 | XMS_ITS | Encounter Summary ---
Author Organization [employer] Address [address] [facility] [address] [place] [address] Care Team Providers Care Medical Driver Name Role Phone Dilia Greer NP Primary Care Provider [phone] Reason for Visit * Reason Onset Date Comments Med Refill 01/08/2024 Encounter Details Date Type Department Care Team (Late st Contact Info) Description 01/08/2024 Refill [facility] [address] [place] [address] Omayra Jiménez FNP [address] [place] [address] Social History Tobacco Use Types Packs/Day Years Used Date Smoking Tobacco: Every Day Cigarettes Passive Smoke Exposure: Past Smokeless Tobacco: Never Alcohol Use Standard Drinks/Week Comments Yes 0 (1 standard drink = 0.6 oz pur e alcohol) socially Housing Stability Answer Date Recorded What is your housing situation today? I do not have housing (Staying with others, in a hotel, in a fpc, living outside on the street, on a beach, in a car, or in a park 12/18/[address] you li ve. Do you have problems with any of the following? Pests such as bugs, ants, or mice;Mold;Lead [place] or [place] 12/18/2022 Food Insecurity Answer Date [...] the past 12 months, has t he [employer], gas, oil or water company threatened to [...] Care Team (Late st Contact Info) Description 02/11/2025 9:00 AM EST Office Visit [facility] MEDICINE [address] [place] [address] Dilia Greer NP [address] [place] [address] 02/18/2025 10:30 AM EST Office Visit [facility] [address] [place] [address] Mica Ramirez, DDS [address] [place] [address] 03/24/2025 8:00 AM EST Office Visit [facility] [address] [place] [address] Ellis Mao DDS [address] [place] [address] documented as of this encounter Visit Diagnoses Not on filedocumented in this encounter Care Teams Medical Driver Relationship Specialty Start Date End Date Dilia Greer NP [address] [place] [phone] PCP - General Family Medicine 12/22/24 documented as of this encounter
--- OUTSIDE RECORDS SUMMARY | 2025-02-10 14:56 | XMS_ITS | Encounter Summary ---
Author Organization [employer] Address [address] [place] [address] Care Team Providers Care Exchange Floor Manager Name Role Phone Dilia Greer NP Primary Care Provider [phone] Encounter Details Date Type Department Care Team (Late st Contact Info) Description 02/10/2025 Orders Only [facility] External Provider, [facility] Social History Tobacco Use Types Packs/Day Years Used Date Smoking Tobacco: Every Day Cigarettes Passive Smoke Exposure: Past Smokeless Tobacco: Never Alcohol Use Standard Drinks/Week Comments Yes 0 (1 standard drink = 0.6 oz pur e alcohol) socially Alcohol Answer Date Recorded How often do you have a drink containing alcohol ? 2 12/23/2024 How many drinks containing a lcohol do you have on a typical day when you are drinking? 2 12/23/2024 How often do you have six or more drinks on one occasion? 2 12/23/2024 Depression Answer Date Recorded Patient Health Questionnaire-9 Score 22 12/23/2024 Patient Health Questionnaire-9 Score 22 12/23/2024 Last PHQ-9: Questionnaire Data Not on file 1 Housing Stability Answer Date Recorded What is your housing situation today? I have housing today, but I am worried about losing housing in the future 12/23/[address] you li ve. Do you have problems with any of the following? None of the above 12/23/2024 Food Insecurity Answer Date Recorded Within the past 12 months, y ou worried that your food would run out before you got money to buy more: Often true 2024 Within the past 12 months,th e food you bought just didn't last and you didn't have enough money to get more: Sometimes True 12/23/2024 Transportation Answer Date Recorded In the past 12 months, has l ack of transportation kept you from medical appts, meetings, work or from getting things needed for daily living? Yes, it has kept me from medical appointments or getting medications. 12/23/2024 Utilities Answer Date Recorded In the past 12 months, has t he electric, gas, oil or water company threatened to shut off services in your home? No 12/23/2024 Depression Answer Date Recorded Patient Health Questionnaire-2 Score 5 12/23/2024 Internet Access Answer Date Recorded Internet Access Q1 Yes 12/23/2024 Internet Access Q2 Not on file 12/23/2024 Sex and Gender Information Value Date Recorded [...] Description 02/11/2025 9:00 AM EST Office Visit [facility] [address] [place] [address] Dilia Greer NP [address] [place] [address] 02/18/2025 10:30 AM EST Office Visit [facility] [address] [place] [address] Mica Ramirez DDS [address] [place] [address] 03/24/2025 8:00 AM EST Office Visit [facility] [address] [place] [address] Ellis Mao DDS [address] [place] [address] documented as of this encounter Procedures Procedure Name Priority Date/Time Associated Diagnosis Comments SARS COV2/INFLUENZA A/B AND RSV RNA QL NAAT Routine 02/10/2025 11:18 AM EST XR FOOT 3+ VIEWS RIGHT Routine 02/10/2025 11:10 AM EST XR CHEST 1 VIEW Routine 02/10/2025 11:08 AM EST documented in this encounter Results * SARS-CoV-2 RNA, Influenza A/B, and RSV RNA, Ql NAAT (02/10/2025 11:18 AM EST) Influenza A PCR NEGATIVE Negative [facility] Influenza B PCR NEGATIVE Negative [facility] Resp Syncy Virus RNA Qual PCR NEGATIVE Negative [facility] SARS COV2 PCR NEGATIVE Negative [facility] Comment:All test results mus t be correlated with clinical findings.Negative results do not preclude SARS-CoV2, influenza Avirus, influenza B virus and/or RSV infectionand should not be used as the sole basis for treatment orother patient management decisions. Negative results must becombined with clinical observations, patient history, andepidemiological information.This test has not been evaluated for monitoring treatment ofinfection.This test has been authorized by the FDA under an EmergencyUse Authorization (EUA) for use by authorized laboratories.Testing performed on the [employer] GeneXpert utilizingreal-time RT-PCR.All SARS CoV2 and positive influenza A/B results arereported to [facility] 02/10/2025 11:1 8 AM EST 02/10/2025 11:21 AM EST us Generic External Data Provider LAB MICROBIOLOGY - GENERAL ORDERABLES Final Result [facility] [address] [place] [address] [phone] * XR Foot 3+ Views Right (02/10/2025 11:10 AM EST) Anatomical Region Laterality Modality Lower Extremities, Foot Right Radiogra phic Imaging 02/10/2025 11:1 0 AM EST Narrative 02/10/2025 11:37 AM EST [address] [address] XRay Report Signed Patient: Jesse Trevino MR#: [id number] 76 : 1980 Acct:[id number] Age/Sex: 44 / M ADM Date: 02/10/25 Loc: HO.ED Attending Dr: Ordering Physician: Geovanny Rich Date of Service: 02/10/25 Procedure(s): XR foot RT min 3V Accession Number(s): [id number] cc: Geovanny Rich; [facility] Reason for Exam: right toe/foot pain EXAMINATION: XR FOOT 3 OR MORE VIEWS RIGHT HISTORY: right toe/foot pain COMPARISON: There are no prior studies available for comparison. FINDINGS: Three views of the right foot are submitted. Osseous mineralization is normal. There is no fracture or dislocation. The joint spaces are preserved. The soft tissues are unremarkable. XR/XR foot RT min 3V IMPRESSION: Unremarkable examination of the right foot. Electronically signed by: Gideon Stallings MD 02/10/2025 11:34 AM EST Dictated By: Gideon Stallings MD Signed By: <Electronically signed by Gideon Stallings MD in OV> 02/10/25 1134 DD/ 1110 TD/TT: 02/10/25 1111 Help Desk Analyst: Procedure Note Donotuseinterpreter, Image - 02/10/[address] [address] XRay Report Signed Patient: Jesse TrevinoMR#: [id number] [birth year] : 1980Acct:[id number] Age/Sex: 44 / MADM Date: 02/10/25 Loc: HO.ED Attending Dr: Ordering Physician: Geovanny Rich Date of Service: 02/10/25 Procedure(s): XR foot RT min 3V Accession Number(s): [id number] cc: Geovanny Rich; [facility] Reason for Exam: right toe/foot pain EXAMINATION: XR FOOT 3 OR MORE VIEWS RIGHT HISTORY: right toe/foot pain COMPARISON: There are no prior studies available for comparison. FINDINGS: Three views of the right foot are submitted. Osseous mineralization is normal. There is no fracture or dislocation. The joint spaces are preserved. The soft tissues are unremarkable. XR/XR foot RT min 3V IMPRESSION: Unremarkable examination of the right foot. Electronically signed by: Gideon Stallings MD 02/10/2025 11:34 AM EST RP Dictated By: Gideon Stallings MD Signed By: <Electronically signed by Gideon Stallings MD in OV> 02/10/25 1134 DD/ 1110 TD/TT: 02/10/25 1111 Help Desk Analyst: [facility] External Provider IMG XR PROCEDURES Final Result * XR Chest 1 View (02/10/2025 11:08 AM EST) Anatomical Region Laterality Modality Chest Radiographic Lori ging 02/10/2025 11:0 8 AM EST Narrative 02/10/2025 11:39 AM EST [place] [address] XRay Report Signed Patient: Jesse Trevino MR#: [id number] [birth year] : 1980 Acct:[id number] Age/Sex: 44 / M ADM Date: 02/10/25 Loc: .ED Attending Dr: Ordering Physician: Generic ED Physician Date of Service: 02/10/25 Procedure(s): XR chest 1V Accession Number(s): [id number] cc: Generic ED Physician; [facility] Reason for Exam: COUGH EXAMINATION: XR CHEST 1 VIEW HISTORY: COUGH COMPARISON: Comparison is made with the prior examination dated 12/17/2024. FINDINGS: A single PA view of the chest is submitted. The lungs are expanded and clear. There is no pleural effusion, pneumothorax, or pulmonary vascular congestion. The heart is normal in size. The bones are intact. XR/XR chest 1V IMPRESSION: No acute cardiopulmonary abnormality. Electronically signed by: Gideon Stallings MD 02/10/2025 11:36 AM EST RP Dictated By: Gideon Stallings MD Signed By: <Electronically signed by Gideon Stallings MD in OV> 02/10/25 1136 DD/ 1108 TD/TT: 02/10/25 1111 Help Desk Analyst: Procedure Note Donotuseinterpreter, Image - 02/10/[address] [address] XRay Report Signed Patient: Jesse TrevinoMR#: [id number] [birth year] : 1980Acct:[id number] Age/Sex: 44 / MADM Date: 02/10/25 Loc: .ED Attending Dr: Ordering Physician: Generic ED Physician Date of Service: 02/10/25 Procedure(s): XR chest 1V Accession Number(s): [id number] cc: [facility] ED Physician; [facility] Reason for Exam: COUGH EXAMINATION: XR CHEST 1 VIEW HISTORY: COUGH COMPARISON: Comparison is made with the prior examination dated 12/17/2024. FINDINGS: A single PA view of the chest is submitted. The lungs are expanded and clear. There is no pleural effusion, pneumothorax, or pulmonary vascular congestion. The heart is normal in size. The bones are intact. XR/XR chest 1V IMPRESSION: No acute cardiopulmonary abnormality. Electronically signed by: Gideon Stallings MD 02/10/2025 11:36 AM EST RP Dictated By: Gideon Stallings MD Signed By: <Electronically signed by Gideon Stallings MD in OV> 02/10/25 1136 DD/ 1108 TD/TT: 02/10/25 1111 Help Desk Analyst: [facility] External Provider IMG XR PROCEDURES Final Result documented in this encounter Visit Diagnoses Not on filedocumented in this encounter Additional Health Concerns Assessment Noted Time PHQ-9 Depression Total Score: 22 025 11:07 AM EDT documented as of this encounter Care Teams Exchange Floor Manager Relationship Specialty Start Date End Date Dilia Greer NP [address] [place] [address] PCP - General Family Medicine 12/22/24 documented as of this encounter
--- OUTSIDE RECORDS SUMMARY | 2025-02-10 14:56 | XMS_ITS | Clinical Summary ---
Author Organization [employer] Address [address] [facility] 7 [place] [address] Care Team Providers Care Inventory Specialist Name Role Phone Dilia Greer NP Primary Care Provider [phone] Allergies Active Allergy Reactions Criticality Noted Date Comments Sulfamethoxazole-Trimeth oprim Anaphylaxis High 10/08/2023 Iodinated Contrast Media Angioedema 10/08/2023 Peanut Butter Flavoring Agent (Non-Screening) Hives 12/23/2024 After eating butterfinger candy Medications * This document contains information received from the source organization and may not represent a complete record from that organization. cyclobenzaprin e (Flexeril) 10 MG tablet Take 1 tablet (10 mg) by mouth 3 times daily for 10 days. 30 tablet 10/08/19 24 Active albuterol 108 (90 Base) MCG/ACT inhaler Inhale 2 puffs every 6 (six) hours if needed for wheezing. Active predniSONE (Deltasone) 20 MG tablet Take by mouth. Active doxycycline (Vibramycin) 100 MG capsule Take 1 capsule by mouth 2 times daily. 12/19/19 25 Active acetaminophen (Tylenol) 500 MG tablet Take 1 tablet (500 mg) by mouth every 6 (six) hours if needed for mild pain for up to 20 doses. 20 tablet 01/28/20 25 Active azithromycin (Zithromax) 250 MG tablet Take 2 tabs (500mg) on Day 1, and then 1 tab on Days 2-5. 6 tablet 01/28/20 Active amoxicillin-cl avulanate (Augmentin) 875-125 MG tablet Take 1 tablet by mouth 2 times daily. 12/19/19 025 Discontinued(Re order (will not trigger notification to Pharmacy)) amoxicillin-cl avulanate (Augmentin) 875-125 MG tablet Take 1 tablet by mouth 2 times daily for 3 days. 6 tablet 01/28/20 025 Active Problems Problem Noted Date Diagnosed Date Severe episode of recurrent major depressive disorder, without psychotic features (CMS/HCC) 12/23/2024 Anxiety Depression Neurofibromatosis ([facility]/HCC) Encounters * This document contains information received from the source organization and may not represent a complete record from that organization. Date Type Department Care Team Description 02/10/2025 Orders Only [facility] External Provider, [facility] 02/09/[address] [address] Dilia Greer NP Chart Prep 02/04/2025 Travel 01/27/2025 8:00 AM EST Office Visit [facility] [address] [place] [address] Ellis Mao DDS Anxiety (Primary Dx); depression; Neurofibromatosis (CMS/HCC) (HCC) 01/22/2025 Travel 12/23/2024 1:00 PM EDT Office Visit [facility] [address] [place] [address] Mica Ramirez DDS Rampant dental caries (Primary Dx); Dental abscess 12/23/2024 9:00 AM EDT Office Visit [address] [address] Dilia Greer NP Encounter to establish care with new provider (Primary Dx); Encounter for health-related screening; Routine screening for STI (sexually transmitted infection); Anxiety and depression; Dietary counseling; Exercise counseling 12/23/2024 Travel 12/22/[address] [address] Dilia Greer NP Chartprep 12/17/2024 Orders Only [facility] External Provider, [facility] 12/16/2024 Patient Outreach [facility] [address] [place] [address] Dilia Greer NP Pre-visit Planning (SDOH unable to reach [facility] ) 12/16/2024 Travel from Last 3 Months [...] Sign Reading Time Taken Comments Blood Pressure 118/76 01/27/2025 8:04 AM EST Pulse 70 01/27/2025 8:04 AM EST Temperature 36.7 C (98 F) 12/23/2024 9:15 AM EDT Respiratory Rate 23 12/23/2024 9:15 AM EDT Oxygen Saturation 97% 12/23/2024 9:15 AM EDT Inhaled Oxygen Concentration - - Weight 72.4 kg (159 lb 9.6 oz) 12/23/2024 9:15 A M EDT Height 170.2 cm (5' 7 ) 12/23/2024 9:15 AM EDT Body Mass Index 25 12/23/2024 9:15 AM EDT Plan of Treatment Upcoming Encounters Date Type Department Care Team (Late st Contact Info) Description 02/11/2025 9:00 AM EST Office Visit [facility] [address] [place] [address] Dilia Greer NP [address] [place] [address] 02/18/2025 10:30 AM EST Office Visit [facility] [address] [place] [address] Mica Ramirez DDS [address] [place] [address] 03/24/2025 8:00 AM EST Office Visit [facility] [address] [place] [address] Ellis Mao DDS [address] [place] [address] Health Maintenance Due Date Last Done Comments Dental Oral Exam 1980 Dental Prophylaxis 1980 Dental X-Ray: Bitewings 1980 Dental X-Ray: Full Mouth 1980 HIV Screening 1980 Lipid Panel 1980 HPV Vaccines (1 - Male 3-dos e series) 06/01/1995 Hepatitis C Screening 1998 DTaP/Tdap/Td Vaccines (1 - Tdap) 06/01/1999 Hepatitis A Vaccines (1 of 2 - Risk 2-dose series) 06/01/1999 Hepatitis B Vaccines (1 of 3 - 19+ 3-dose series) 06/01/1999 Pneumococcal Vaccine: Pediatrics (0 to 5 Years) and At-Risk Patients (6 to 49) Years (1 of 2 - PCV) 06/01/1999 COVID-19 Vaccine (1 - 2024-2 6 season) 2024 Influenza Vaccine (#1) 2024 Depression Monitoring 06/23/2025 12/23/2024 , 12/23/2024 Alcohol/Substance Use Screening 12/23/2025 12/23/2024 Disability Screening 12/23/2025 12/23/2024 Family Planning (PISQ) 12/23/2025 12/23/2024 SDOH Screening 12/23/2025 12/23/2024 Tobacco Screening 01/27/2026 01/27/2025 Zoster Vaccines (1 of 2) 2030 RSV Patients and Patients Aged 60 years or older (1 - [...] QL NAAT Routine 02/10/2025 11:18 AM EST STREP A NUCLEIC ACID Routine 02/10/2025 11:18 AM EST XR FOOT 3+ VIEWS RIGHT Routine 11:10 AM EST XR CHEST 1 VIEW Routine 02/10/2025 11:08 AM EST CASE PRESENTATION, DETAILED AND EXTENSIVE TREATMENT PLANNING Routine 01/27/2025 8:00 AM EST 1 EXTRACTION, ERUPTED TOOTH OR EXPOSED ROOT (ELEVATION/FORCEPS REMOVAL) Routine 01/27/2025 8:00 AM EST 2 EXTRACTION, ERUPTED TOOTH OR EXPOSED ROOT (ELEVATION/FORCEPS REMOVAL) Routine 01/27/2025 8:00 AM EST CASE PRESENTATION, DETAILED AND EXTENSIVE TREATMENT PLANNING Routine 12/23/2024 1:00 PM EDT Rampant dental caries INTRAORAL - PERIAPICAL EACH ADDITIONAL RADIOGRAPHIC IMAGE Routine 12/23/2024 1:00 PM EDT Rampant dental caries INTRAORAL - PERIAPICAL FIRST RADIOGRAPHIC IMAGE Routine 12/23/2024 1:00 PM EDT Rampant dental caries PALLIATIVE (EMERGENCY) TREATMENT OF DENTAL PAIN - MINOR PROCEDURE Routine 12/23/2024 1:00 PM EDT Rampant dental caries COMPREHENSIVE METABOLIC PANEL Routine 12/22/2024 1:55 PM EDT CBC WITH AUTO DIFFERENTIAL Routine 12/22/2024 1:55 PM EDT STREP A NUCLEIC ACID Routine 12/22/2024 1:53 PM EDT COVID-19 ID NOW ([facility]) Routine 12/22/2024 1:52 PM EDT INFLUENZA A B2 ID NOW ([facility]) Routine 12/22/2024 1:52 PM EDT XR CHEST 2 VIEWS Routine 12/17/2024 9:28 PM EDT from Last 3 Months Results * Strep A Nucleic Acid (02/10/2025 11:18 AM EST) Only the most recent of2 resultswithin the time period is included. IDNOW SERIAL# [id number] [facility] Strep A Nucleic Acid Negative Negative [facility] Comment:All test results mus t be correlated with clinical findings.This test has not been evaluated for monitoring treatment ofinfection.Additional follow-up testing using the culture method isrequired if the result is negative and clinical symptomspersist, or in the event of an acute rheumatic feveroutbreak. 02/10/2025 11:1 8 AM EST 02/10/2025 11:21 AM EST us Generic External Data Provider LAB MICROBIOLOGY - GENERAL ORDERABLES Final Result [facility] [address] [place] [phone] * SARS-CoV-2 RNA, Influenza A/B, and RSV RNA, Ql NAAT (02/10/2025 11:18 AM EST) Influenza A PCR NEGATIVE Negative [facility] Influenza B PCR NEGATIVE Negative [facility] Resp Syncy Virus RNA Qual PCR NEGATIVE Negative [facility] SARS COV2 PCR NEGATIVE Negative [facility] Comment:All test results mus t [...] use by authorized laboratories.Testing performed on the [employer] GeneXpert utilizingreal-time RT-PCR.All SARS CoV2 and positive influenza A/B results arereported to [facility]. 02/10/2025 11:1 8 AM EST 02/10/2025 11:21 AM EST us Generic External Data Provider LAB MICROBIOLOGY - GENERAL ORDERABLES Final Result [facility] [address] [place] [phone] * XR Foot 3+ Views Right (02/10/2025 11:10 AM EST) Anatomical Region Laterality Modality Lower Extremities, Foot Right Radiogra phic Imaging 02/10/2025 11:1 0 AM EST Narrative 02/10/2025 11:37 AM EST [address] [address] XRay Report Signed Patient: Jesse Trevino MR#: [id number] 76 : 1980 Acct:[id number] Age/Sex: 44 / M ADM Date: 02/10/25 Loc: HO.ED Attending Dr: Ordering Physician: Geovanny Rich Date of Service: 02/10/25 Procedure(s): XR foot RT min 3V Accession Number(s): [id number] cc: Geovanny Rich; [facility] Reason for Exam: right toe/foot pain [...] 02/10/25 1134 DD/ 1110 TD/TT: 02/10/25 1111 Nurses Aide: Procedure Note Donotsameerinterpreter, Image - 02/10/[address] [address] XRay Report Signed Patient: Jesse TrevinoMR#: [id number] 76 : 1980Acct:[id number] Age/Sex: 44 / MADM Date: 02/10/25 Loc: HO.ED Attending Dr: Ordering Physician: Geovanny Rich Date of Service: 02/10/25 Procedure(s): XR foot RT min 3V Accession Number(s): [id number] cc: Geovanny Rich; [facility] Reason for Exam: right toe/foot pain [...] 02/10/25 1134 DD/ 1110 TD/TT: 02/10/25 1111 Nurses Aide: [facility] External Provider IMG XR PROCEDURES Final Result * XR Chest 1 View (02/10/2025 11:08 AM EST) Anatomical Region Laterality Modality Chest Radiographic Lori ging 02/10/2025 11:0 8 AM EST Narrative 02/10/2025 11:39 AM EST [address] [address] XRay Report Signed Patient: Jesse Trevino MR#: [id number] 76 : 1980 Acct:[id number] Age/Sex: 44 / M ADM Date: 02/10/25 Loc: HO.ED Attending Dr: Ordering Physician: Generic ED Physician Date of Service: 02/10/25 Procedure(s): XR chest 1V Accession Number(s): [id number] cc: Generic ED Physician; [facility] Reason for Exam: COUGH EXAMINATION: XR [...] 02/10/25 1136 DD/ 1108 TD/TT: 02/10/25 1111 Nurses Aide: Procedure Note Donotuseinterpreter, Image - 02/10/2025 [place] [address] XRay Report Signed Patient: Mell Trevino#: [id number] 76 : 1980Acct:[id number] Age/Sex: 44 / MADM Date: 02/10/25 Loc: .ED Attending Dr: Ordering Physician: [facility] ED Physician Date of Service: 02/10/25 Procedure(s): XR chest 1V Accession Number(s): [id number] cc: [facility] ED Physician; [facility] Reason for Exam: COUGH EXAMINATION: XR [...] 02/10/25 1136 DD/ 1108 TD/TT: 02/10/25 1111 Nurses Aide: [facility] External Provider IMG XR PROCEDURES Final Result * CBC auto differential (12/22/2024 1:55 PM EDT) White Blood Count 5.9 4.8 - 10.8 X10*3/uL [facility] Red Blood Count 5.63 4.60 - 5.80 X10*6/uL [facility] Hemoglobin 16.2 14.0 - 18.0 g/dl [facility] Hematocrit 48.9 42.0 - 52.0 % [facility] Mean Corpuscular Volume 86.9 80.0 - 98.0 fL [facility] Mean Corpuscular Hemoglobin 28.8 27.0 - 33.0 pg [facility] Mean Corpuscular HGB Conc 33.1 31.0 - 36.0 g/dl [facility] Red Cell Distribution Width 13.6 11.0 - 16.0 % [facility] Platelet Count 186 160 - 400 X10*3/uL [facility] Mean Platelet Volume 9.7 9.4 - 12.4 fL [facility] Neutrophils Percent Auto 68.0 45 - 73 % [facility] Imm Gran Pct Auto 0.2 0.0 - 0.4 % [facility] Lymphocytes Percent Auto 25.1 20 - 40 % [facility] Monocytes Percent Auto 6.0 2 - 11 % [facility] Eosinophils Percent Auto 0.2 0 - 4 % [facility] Basophils Percent Auto 0.5 0 - 2 % [facility] NRBC Pct Auto 0.0 0.0 - 0.2 /100WBC [facility] Neutrophils Absolute Auto 4.0 2.0 - 8.3 x10*3/uL [facility] Imm Gran Abs Auto 0.01 0.00 - 0.03 X10*3/uL [facility] Lymphocytes Absolute Auto 1.5 1.2 - 4.9 X10*3/uL [facility] Monocytes Absolute Auto 0.4 0.1 - 1.2 X10*3/uL [facility] Eosinophils Absolute Auto 0.0 0.0 - 0.4 X10*3/uL [facility] Basophils Absolute Auto 0.0 0.0 - 0.2 X10*3/uL [facility] NRBC Abs Auto 0.000 0.0 - 0.012 X10*3/uL [facility] 12/22/2024 1:55 PM EDT 12/22/2024 1:55 PM EDT us Generic External Data Provider LAB BLOOD ORDERAB LES Final Result [facility] [address] [place] [phone] * (ABNORMAL) Comprehensive Metabolic Panel (12/22/2024 1:55 PM EDT) Sodium 143 135 - 145 mmol/L [facility] Potassium 4.4 3.3 - 5.1 mmol/L [facility] Chloride 107 96 - 108 mmol/L [facility] Carbon Dioxide 29 22 - 29 mmol/L [facility] Anion Gap 11(L) 12 - 20 [facility] Urea Nitrogen (BUN) 14 9 - 16 mg/dL [facility] Creatinine, Serum 1.20 0.5 - 1.4 mg/dL [facility] Creatinine Clr Calc Pharmacy 73.4 [facility] Comment:eGFR (calculated fro m the MDRD study equation) and eCrCl(calculated from the Cockcroft-Gault equation) are based ondifferent parameters and may not yield comparable results.If eCrCl result is absurd, please check patient'sheight/weight. Estimated Glomerular Filt Rate >60 [facility] Comment:Chronic Kidney Disea se: Estimated GFR < 60 mL/min/1.02a0Bclbez Kidney Disease: Estimated GFR < 15 mL/min/1.73m2 Glucose 95 60 - 115 mg/dL [facility] Calcium 9.5 8.4 - 10.2 mg/dL [facility] Bilirubin, Total 0.3 0.0 - 1.0 mg/dL [facility] Aspartate Amino Transferase 23 5 - 37 U/L [facility] Alanine Aminotransferase 29 0 - 40 U/L [facility] Total Protein 7.0 6.5 - 8.0 g/dL [facility] Albumin Level 4.3 3.5 - 5.0 g/dL [facility] Alkaline Phosphatase 61 39 - 117 U/L [facility] 12/22/2024 1:55 PM EDT 12/22/2024 1:55 PM EDT Generic External Data Provider LAB BLOOD ORDERAB LES Final Result Performing Organization Address [facility] Co de Phone Number [facility] [address] [place] [phone] * Influenza A B2 ID NOW ([employer]) (12/22/2024 1:52 PM EDT) IDNOW SERIAL# [id number] [facility] Influenza A Negative Negative [facility] Influenza B2 Negative Negative [facility] Influenza A B2 Note See Note [facility] Comment:The [facility] ID NOW In fluenza A B2 test is used for thequalitative detection of influenza A and B from patientswith signs and symptoms of respiratory infection.Negative results do not preclude influenza virus infectionand should not be used as the sole basis for diagnosis,treatment or other patient management decisions.There is a risk of false negative results due to thepresence of variants in the viral targets of the assay, lowlevels of virus in the specimen and co- infection withRespiratory Syncytial Virus. 12/22/2024 1:52 PM EDT 12/22/2024 1:55 PM EDT us Generic External Data Provider LAB MICROBIOLOGY - GENERAL ORDERABLES Final Result Performing Organization Address [facility]/ZIP Co de Phone Number [facility] [address] [place] [phone] * COVID-19 ID NOW ([facility]) (12/22/2024 1:52 PM EDT) IDLICHA SERIAL# [id number] [facility] COVID-19 TEST Negative Negative [facility] COVID-19 NOTE See Note [facility] Comment: Results are for the identification of SARS-CoV2 RNA. TheSARS-CoV2 RNA is generally detectable in respiratory samplesduring the acute phase of infection. Positive results areindicative of the presence of SARS-CoV-2 RNA; clinicalcorrelation with patient history and other diagnosticinformation is necessary to determine patient infectionstatus. Positive results do not rule out bacterial infectionor co- infection with other viruses.Testing facilities within the [facility] and itsterritories are required to report all positive results tothe appropriate public health authorities.Negative results should be treated as presumptive and, ifinconsistent with clinical signs and symptoms or necessaryfor patient management, should be tested with differentauthorized or cleared molecular tests. Negative results donot preclude SARS-CoV2 RNA infection and should not be usedas the sole basis for patient management decisions. Negativeresults should be considered in the context of a patient'srecent exposures, history and the presence of clinical signsand symptoms consistent with COVID-19.This test has been authorized by the FDA under an EmergencyUse Authorization (EUA) for use by authorized laboratories.Testing performed on the [facility] ID NOW utilizing NAAT. 12/22/2024 1:52 PM EDT 12/22/2024 1:55 PM EDT us Generic External Data Provider LAB MOLECULAR REY GNOSTICS ORDERABLES Final Result [facility] [address] [place] [phone] * XR Chest 2 Views (12/17/2024 9:28 PM EDT) Anatomical Region Laterality Modality Chest Radiographic Lori ging 12/17/2024 9:28 PM EDT Narrative 12/17/2024 9:30 PM EDT [address] [address] XRay Report Signed Patient: Jesse Trevino MR#: [id number] 76 : 1980 Acct:[id number] Age/Sex: 44 / M ADM Date: 12/17/24 Loc: HO.ED Attending Dr: Ordering Physician: Jackie Plascencia NP Date of Service: 12/17/24 Procedure(s): XR chest 2V Accession Number(s): [id number] cc: [facility]; Jackie Plascencia NP Reason for Exam: [...] in OV> 12/17/242129 DD/ 27 TD/TT: 12/17/242127 Nurses Aide: Procedure Note Donotuseinterpreter, Image - 12/18/[address] [address] XRay Report Signed Patient: Jesse TrevinoMR#: [id number] [birth year] : 1980Acct:[id number] Age/Sex: 44 / MADM Date: 12/17/24 Loc: HO.ED Attending Dr: Ordering Physician: Jackie Plascencia NP Date of Service: 12/17/24 Procedure(s): XR chest 2V Accession Number(s): [id number] cc: [facility]; Jackie Plascencia NP Reason for Exam: [...] in OV> 12/17/242129 DD/ 27 TD/TT: 12/17/242127 Nurses Aide: [facility] External Provider IMG XR PROCEDURES Edited Result - Final from Last 3 Months Insurance [address] [place] [id number] [place] [address] C3 [facility] [place] [address] [place] [address] [place] [address] Care Teams Inventory Specialist Relationship Specialty Start Date End Date Dilia Greer NP [address] [place] [address] PCP - General Family Medicine 12/22/24
--- OUTSIDE RECORDS SUMMARY | 2025-02-10 14:56 | XMS_ITS | Encounter Summary ---
Author Organization [employer] Address [address] [facility] 7 [place] [address] Care Team Providers Care Auto Carrier Driver Name Role Phone Dilia Greer NP Primary Care Provider [phone] Reason for Visit * Reason Onset Date Comments Chart Prep 02/09/2025 Encounter Details Date Type Department Care Team (Late st Contact Info) Description 02/09/2025 Telephone [facility] [address] [place] [phone] Dilia Greer NP [address] [place] [address] Chart Prep Social History Tobacco Use Types Packs/Day Years [...] encounter Miscellaneous Notes * Telephone Encounter - Juni Moulton [place] - 02/09/2025 11:02 AM EST Chart Prep Labs: not done Images: done Referrals: complete Vaccines due: Covid, Flu, PCV20, Hep B, Hep A, HPV, and DTAP Screenings: not applicable Overdue care gaps: Oral health screening and Tobacco documented in this encounter Plan of Treatment Upcoming Encounters Date Type Department Care Team (Late st Contact Info) Description 02/11/2025 9:00 AM EST Office Visit [facility] [address] [place] [address] Dilia Greer NP [address] [place] [address] 02/18/2025 10:30 AM EST Office Visit [facility] ADULT DENTAL [address] [place] [address] Mica Ramirez, DDS [address] [place] [address] 03/24/2025 8:00 AM EST Office Visit [facility] ADULT DENT[facility] [address] [place], [place] [phone] Ellis Mao, DDS [address] [place] [address] documented as of this encounter Visit Diagnoses Not on filedocumented in this encounter Additional Health Concerns Assessment Noted Time PHQ-9 Depression Total Score: 22 025 11:07 AM EDT documented as of this encounter Care Teams Auto Carrier Driver Relationship Specialty Start Date End Date Dilia Greer NP [address] [place], [place] [phone] PCP - General Family Medicine 12/22/24 documented as of this encounter
== END 2025-02-10 13:07 | disposition home or self-care (01) ==
PROVIDERS: Physician Assistant; Emergency Provider Emergency Medicine
DX: J40 Bronchitis, not specified as acute or chronic (principal); R05.9 Cough, unspecified; R11.10 Vomiting, unspecified; R06.00 Dyspnea, unspecified; M79.671 Pain in right foot; Z03.818 Encounter for observation for suspected exposure to other biological agents ruled out
CPT/HCPCS: 71045; 73630; 87637; 87651; 99282; 99283; 99284

== ENCOUNTER → 2025-02-10 10:57 | Outpatient (BNV) | payer MEDICAID, SELFPAY | PROVIDERS: Visit Provider Radiology Diagnostic Radiology | DX: M79.671 Pain in right foot (principal); R05.9 Cough, unspecified | CPT/HCPCS: 71045; 73630 ==

== ENCOUNTER 2025-02-11 10:01 | Outpatient (REF) | payer MEDICAID, SELFPAY ==
[2025-02-11 14:10] LABS: Cholesterol 284 mg/dL (<200); HDL Cholesterol 43 mg/dL (>40); Triglycerides 372 mg/dL (<150)
[2025-02-12 05:20] LABS: HBS Num1 0.95 mIU/mL (0-7.99); HBc Num1 0.08 S/CO (0.00-0.79); HBsAGNum1 0.43 S/CO (0.00-0.99); HIV Num 1 0.06 S/CO (0.00-0.99); Hepatitis A Antibody IgM 0.20 Index (0-0.79); Hepatitis B Surface Antigen Negative (Negative); ~HepC Num1 0.15 S/CO (0.00-0.79); ~Hepatitis A Antibody IgM Nonreactive (Nonreactive); ~Hepatitis B Surface Antibody NONREACTIVE (Nonreactive); ~Hepatitis C Antibody Nonreactive (Nonreactive)
[2025-02-12 06:02] LABS: Syphilis Screen Nonreactive (Nonreactive)
== END 2025-02-11 10:02 | disposition home or self-care (01) ==
LOC: HO.HHCL 10:01
PROVIDERS: PCP Nurse Practitioner; Visit Provider Nurse Practitioner
DX: Z11.59 Encounter for screening for other viral diseases (principal); Z11.4 Encounter for screening for human immunodeficiency virus [HIV]; Z11.3 Encounter for screening for infections with a predominantly sexual mode of transmission
CPT/HCPCS: 36415; 80061; 86704; 86706; 86709; 86780; 86803; 87340; 87389

== ENCOUNTER 2025-03-08 11:44 | Outpatient (REF) | payer MEDICAID, SELFPAY ==
--- OUTSIDE RECORDS SUMMARY | 2025-03-08 13:49 | XMS_ITS | Encounter Summary ---
Author Organization [employer] Address [address] [place] [address] Care Team Providers Care Instructional Services Specialist Name Role Phone Dilia Greer NP Primary Care Provider [phone] Reason for Visit * Reason Onset Date Comments Med Refill 01/08/2024 Encounter Details Date Type Department Care Team (Late st Contact Info) Description 01/08/2024 Refill [facility] [address] [place] [address] Omayra Jiménez FNP [address] [place] [address] Social History Tobacco Use Types Packs/Day Years Used Date Smoking Tobacco: Every Day Cigarettes Passive Smoke Exposure: Past Smokeless Tobacco: Never Alcohol Use Standard Drinks/Week Comments Yes 0 (1 standard drink = 0.6 oz pur e alcohol) socially Housing Stability Answer Date Recorded What is your housing situation today? I do not have housing (Staying with others, in a hotel, in a residential, living outside on the street, on a beach, in a car, or in a park 12/18/[address] you li ve. Do you have problems with any of the following? Pests such as bugs, ants, or mice;Mold;Lead Cannon Ball or Pipes 12/18/2022 Food Insecurity Answer Date [...] the past 12 months, has t he [employer] gas, oil or water company threatened to [...] Care Team (Late st Contact Info) Description 03/16/2025 10:00 AM EST Office Visit [facility] [address] [place] [address] Mica Ramirez, [facility] [address] [place] [address] 03/24/2025 8:00 AM EST Office Visit [facility] [address] [place] [address] Ellis Mao [facility] [address] [place] [address] 04/16/2025 8:00 AM EST Office Visit [facility] [address] [place] [address] Ellis Mao [facility] [address] [place] [address] 04/23/2025 8:00 AM EST Office Visit [facility] [address] [place] [address] Damon Romy 05/17/2025 1:00 PM EDT Office Visit [facility] [address] [place] [address] Dilia Greer NP [address] [place] [address] documented as of this encounter Visit Diagnoses Not on filedocumented in this encounter Care Teams Instructional Services Specialist Relationship Specialty Start Date End Date Dilia Greer NP [address] [place] [address] PCP - General Family Medicine 12/22/24 documented as of this encounter
--- OUTSIDE RECORDS SUMMARY | 2025-03-08 13:49 | XMS_ITS | Clinical Summary ---
Author Organization [employer] Address [address] [facility] 7 [place] [address] Care Team Providers Care Dining Services Director Name Role Phone Dilia Greer NP Primary Care Provider [phone] Allergies Active Allergy Reactions Criticality Noted Date Comments Sulfamethoxazole-Trimeth oprim Anaphylaxis High 10/08/2023 Iodinated Contrast Media Angioedema 10/08/2023 Peanut Butter Flavoring Agent (Non-Screening) Hives 12/23/2024 After eating butterfinger candy Medications * This document contains information received from the source organization and may not represent a complete record from that organization. cyclobenzaprine (Flexeril) 10 MG tablet Take 1 tablet (10 mg) by mouth 3 times daily for 10 days. 30 tablet 024 Active Additional Information Patient not taking.Reported on 02/18/2025 albuterol 108 (90 Base) MCG/ACT inhaler Inhale 2 puffs every 6 (six) hours if needed for wheezing. Active predniSONE (Deltasone) 20 MG tablet Take by mouth. Activ e doxycycline (Vibramycin) 100 MG capsule Take 1 capsule by mouth 2 times daily. 025 Active azithromycin (Zithromax) 250 MG tablet Take 2 tabs (500mg) on Day 1, and then 1 tab on Days 2-5. 6 tablet 025 Active SUMAtriptan (Imitrex) 25 MG tabletIndications :Acute nonintractable headache, unspecified headache type,Shortness of breath Take 1 tablet (25 mg) by mouth 1 (one) time if needed for migraine. Lye down for at least 30 mins after taking. May repeat dose once in 2 hours if no relief. Do not exceed 2 doses in 24 hours. 9 tablet Active budesonide-formot nehemias (Symbicort) 160-4.5 MCG/ACT inhalerIndication s:Wheezing Inhale 2 puffs in the morning and at bedtime. May use additional 2 puffs q4 h as needed shortness of breath. No more than 12 puffs in 24 hrs. Rinse mouth with water after use to reduce aftertaste and incidence of candidiasis. Do not swallow. 1 each 11 2025 Active acetaminophen (Tylenol 8 Hour) 650 MG ER tablet Take 1 tablet (650 mg) by mouth every 8 (eight) hours if needed for mild pain. Do not crush, chew, or split. 30 tablet Active ibuprofen 600 MG tablet Take 1 tablet (600 mg) by mouth 3 times daily. 15 tablet Active atorvastatin (Lipitor) 20 MG tabletIndications :Mixed hyperlipidemia Take 1 tablet (20 mg) by mouth at bedtime. 90 tablet 1 2025 Active acetaminophen (Tylenol) 500 MG tablet Take 1 tablet (500 mg) by mouth every 6 (six) hours if needed for mild pain for up to 20 doses. 20 tablet 025 2024 Discontinued ibuprofen 600 MG tabletIndications :Acute nonintractable headache, unspecified headache type Take 1 tablet (600 mg) by mouth every 6 (six) hours if needed for mild pain, headaches or fever for up to 14 days. 56 tablet 2024 chlorhexidine (Peridex) 0.12 % solution Use 15 mL in the mouth or throat if needed (for mouthwash 15 ml for 30 seconds, swish and spit) for up to 14 days. 473 mL 025 2024 amoxicillin (Amoxil) 500 MG capsule Take 1 capsule (500 mg) by mouth every 8 (eight) hours for 7 days. 21 capsule 12/11/2 025 2024 Hospital, Clinic, or Other Facility Administered Medication Ordered Dose Route Frequency Start Date End Date Status albuterol (2.5 MG/3ML) 0.083% nebulizer solution 2.5 mgIndications:Wheezi ng 2.5 mg NEBULIZATION Once 02/11/2025 02/11/2025 Ended Active Problems Problem Noted Date Diagnosed Date Pain, dental 02/18/2025 Severe dental caries 02/18/2025 PTSD (post-traumatic stress disorder) 02/11/2025 Severe episode of recurrent major depressive disorder, without psychotic features ([facility]/HCC) 12/23/2024 GABO (generalized anxiety disorder) Depression Neurofibromatosis ([facility]) Encounters * This document contains information received from the source organization and may not represent a complete record from that organization. Date Type Department Care Team Description 02/19/2025 11:15 AM EST Office Visit [facility] [place] [address] Dilia Greer NP Mixed hyperlipidemia (Primary Dx); Elevated blood pressure reading in office without diagnosis of hypertension; Encounter for immunization 02/19/2025 Telephone [facility] [place] [address] Dilia Greer NP 02/19/2025 Travel 02/18/2025 1:30 PM EST Office Visit [facility] ADULT DENTAL [address] [place] [address] Ellis Mao DDS Pain, dental (Primary Dx); Severe dental caries 02/18/2025 10:30 AM EST Office Visit [facility] ADULT DENTAL [address] [place] [address] Cordova-Carr, Mica, DDS Encounter for dental examination (Primary Dx); Dental caries; Dental calculus; Periodontal disease; Dental plaque; Teeth missing 02/18/2025 Telephone [facility] [place] [address] Dilia Greer NP CHARTPREP 02/18/2025 Travel 02/17/2025 Travel 02/16/2025 Results Follow-Up [facility] [place] [address] Dilia Greer NP Lipid Panel, Standard, HIV-1/2 Antigen and Antibodies, Fourth Generation, with Reflexes, Syphilis Screen, Hepatitis A,B,C Profile 02/16/[address] [address] Dilia Greer NP Results 02/15/2025 Travel 02/11/2025 9:00 AM EST Office Visit [address] [address] Dilia Greer NP Wheezing (Primary Dx); Acute nonintractable headache, unspecified headache type; Shortness of breath 02/11/2025 Travel 02/10/2025 Orders Only [facility] External Provider, [facility] 02/09/[address] [address] Dilia Greer NP Chart Prep 02/04/2025 Travel 01/27/2025 8:00 AM EST Office Visit [facility] ADULT DENTAL [address] [place] [phone] Ellis Mao, BRITTANY Anxiety (Primary Dx); depression; Neurofibromatosis ([facility]/HCC) (HCC) 01/22/2025 Travel 12/23/2024 1:00 PM EDT Office Visit [facility] ADULT DENTAL [address] [place] [phone] Mica Ramirez, DDS Rampant dental caries (Primary Dx); Dental abscess 12/23/2024 9:00 AM EDT Office Visit [address] [address] Dilia Greer NP Encounter to establish care with new provider (Primary Dx); Encounter for health-related screening; Routine screening for STI (sexually transmitted infection); Anxiety and depression; Dietary counseling; Exercise counseling 12/23/2024 Travel 12/22/[address] [address] Dilia Greer NP Chartprep 12/17/2024 Orders Only [facility] External Provider, [facility] 12/16/2024 Patient Outreach [facility] [address] [place] [address] Dilia Greer NP Pre-visit Planning ([facility] unable to reach [facility] ) 12/16/2024 Travel from Last 3 Months Immunizations Immunization Administration Dates Next Due Hep A, Adult 02/19/2025 HepB-CpG 02/19/2025 Tdap 02/19/2025 Family History Medical History Relation Name Comments Neurofibromatosis Father Heart attack Mother Hypertension Mother Stroke Mother Relation Name Status Comments Father Mother Social History Tobacco Use Types Packs/Day Years Used Date Smoking Tobacco: Every Day Cigarettes Passive Smoke Exposure: Past Smokeless Tobacco: Never Tobacco Cessation:Ready to Q uit: No; Counseling Given: Not Answered Alcohol Use Standard Drinks/Week Comments Yes 0 (1 standard drink = 0.6 oz pur e alcohol) socially Alcohol Answer Date Recorded How often do you have a drink containing alcohol ? 0 02/18/2025 How many drinks containing a lcohol do you have on a typical day when you are drinking? 2 02/18/2025 How often do you have six or more drinks on one occasion? 0 02/18/2025 Depression Answer Date Recorded Patient Health Questionnaire-9 Score 22 02/11/2025 Patient Health Questionnaire-9 Score 22 02/11/2025 Last PHQ-9: Questionnaire Data Not on file 1 04/14/2024 Housing Stability Answer Date Recorded What is [...] Date Recorded Patient Health Questionnaire-2 Score 5 02/11/2025 Internet Access Answer Date Recorded Internet Access [...] Sign Reading Time Taken Comments Blood Pressure 130/80 02/19/2025 11:05 AM EST Pulse 86 02/19/2025 11:05 AM EST Temperature 36.8 C (98.2 F) 02/19/2025 11:05 AM EST Respiratory Rate 18 02/19/2025 11:05 AM EST Oxygen Saturation 96% 02/11/2025 9:05 AM EST Inhaled Oxygen Concentration - - Weight 70.8 kg (156 lb) 02/19/2025 11:05 AM EST Height 170.2 cm (5' 7 ) 02/11/2025 9:05 AM EST Body Mass Index 24.43 02/11/2025 9:05 AM EST Plan of Treatment Upcoming Encounters Date Type Department Care Team (Late st Contact Info) Description 03/16/2025 10:00 AM EST Office Visit [facility] ADULT DENTAL [address] [place] [address] Mica Ramirez DD [address] [place] [address] 03/24/2025 8:00 AM EST Office Visit [facility] ADULT DENTAL [address] [place] [address] Ellis Mao DDS [address] [place] [address] 04/16/2025 8:00 AM EST Office Visit [facility] ADULT DENTAL [address] [place] [address] Ellis Mao DDS [address] [place], [place] [phone] 04/23/2025 8:00 AM EST Office Visit [facility] ADULT DENTAL [address] [place], [place] [phone] Romy Damon 05/17/2025 1:00 PM EDT Office Visit [facility] MEDICINE [address] [place], [place] [phone] Dilia Greer NP [address] [place], [place] [phone] Health Maintenance Due Date Last Done Comments Dental Prophylaxis 1980 HPV Vaccines (1 - Male 3-dose series) 06/01/1995 Pneumococcal Vaccine: Pediatrics (0 to 5 Years) and At-Risk Patients (6 to 49) Years (1 of 2 - PCV) 06/01/1999 COVID-19 Vaccine (1 - season) 2024 Influenza Vaccine (#1) 2024 Hepatitis B Vaccines (2 of 2 - CpG 2-dose series) 03/19/2025 02/19/2025 Depression Monitoring 08/12/2025 02/11/2025, 025 Dental Oral Exam 08/20/2025 02/18/2025 Hepatitis A Vaccines (2 of 2 - Risk 2-dose series) 08/20/2025 02/19/2025 Disability Screening 12/23/2025 12/23/2024 Family Planning (PISQ) 12/23/2025 12/23/2024 SDOH Screening 12/23/2025 12/23/2024 Alcohol/Substance Use Screening 02/18/2026 02/18/2025 Dental X-Ray: Bitewings 02/19/2026 02/18/2025 Tobacco Screening 02/19/2026 02/19/2025 Dental X-Ray: Full Mouth 02/20/2028 02/18/2025 Lipid Panel 02/11/2030 02/11/2025 Zoster Vaccines (1 of 2) 2030 DTaP/Tdap/Td Vaccines (9 - Td or Tdap) 02/19/2035 02/19/2025, 09/03/1996, 09/03/1996, Additional history exists RSV Patients and Patients Aged 60 years or older (1 - 1-dose 75+ series) 06/01/2055 IPV Vaccines Completed 10/01/1985, 11/10, 03/21/1981, Additional history exists HIV Screening Completed 02/11/2025 Hepatitis C Screening Completed 02/11/2025 HIB Vaccines Aged Out No longer eligi [...] Procedure Name Priority Date/Time Associated Diagnosis Comments 13 EXTRACTION, ERUPTED TOOTH REQ REMOVAL OF BONE AND/OR SECTIONING OF TOOTH Routine 02/18/2025 1:30 PM EST CASE PRESENTATION, DETAILED AND EXTENSIVE TREATMENT PLANNING Routine 02/18/2025 1:30 PM EST CASE PRESENTATION, DETAILED AND EXTENSIVE TREATMENT PLANNING Routine 02/18/2025 10:30 AM EST Encounter for dental examination Dental caries Dental calculus Periodontal disease Dental plaque Teeth missing PERIODIC ORAL EVALUATION - ESTABLISHED PATIENT Routine 02/18/2025 10:30 AM EST Encounter for dental examination Dental caries Dental calculus Periodontal disease Dental plaque Teeth missing INTRAORAL - COMPLETE SERIES OF RADIOGRAPHIC IMAGES Routine 02/18/2025 10:30 AM EST Encounter for dental examination Dental caries Dental calculus Periodontal disease Dental plaque Teeth missing HEPATITIS PANEL, GENERAL Routine 02/11/2025 10:06 AM EST Encounter for health-related screening SYPHILIS SCREEN Routine 02/11/2025 10:06 AM EST Routine screening for STI (sexually transmitted infection) HIV 1/2 ANTIGEN/ANTIBODY, FOURTH GENERATION W/RFL Routine 02/11/2025 10:06 AM EST Encounter for health-related screening Routine screening for STI (sexually transmitted infection) LIPID PANEL, STANDARD Routine 02/11/2025 10:06 AM EST Encounter for health-related screening POCT INFLUENZA B (ID NOW RAPID MOLECULAR) Routine 02/11/2025 9:58 AM EST Acute nonintractable headache, unspecified headache type POCT INFLUENZA A (ID NOW RAPID MOLECULAR) Routine 02/11/2025 9:57 AM EST Acute nonintractable headache, unspecified headache type POCT COVID-19 AG MASSEY ID NOW Routine 02/11/2025 9:57 AM EST Acute nonintractable headache, unspecified headache type SARS COV2/INFLUENZA A/B AND RSV RNA QL [...] EDT from Last 3 Months Results * Syphilis Screen (02/11/2025 10:06 AM EST) Syphilis Screen Nonreactive Nonreactive [facility] Blood Venous blood specimen / Unknown 02/11/2025 10:06 AM EST 02/11/2025 1:12 PM EST [email or web address] LAB BLOOD ORDERABLES Final Resu lt Performing Organization Address [facility] de Phone Number [facility] [address] [place] [phone] * Hepatitis A,B,C Profile (02/11/2025 10:06 AM EST) Pathologist [facility] Hepatitis A IgM Nonreactive Nonreactive [facility] Comment:IgM antibodies to FABAIN V not detected; does not exclude earlyacute or recovered HAV infection. ~Hepatitis B Surface Antibody NONREACTIVE Nonreactive [facility] Comment:Nonreactive: < 8.00 mIU/mL Hepatitis B Core Antibody Nonreactive Nonreactive [facility] Hepatitis C Antibody Nonreactive Nonreactive [facility] Comment:Antibodies to HCV no t detected; does not exclude early acuteHCV infection. Hepatitis B Surface Ag Negative Negative [facility] Blood Venous blood specimen / Unknown 02/11/2025 10:06 AM EST 02/11/2025 1:12 PM EST [employer] LAB BLOOD ORDERABLES Final Resu lt Performing Organization Address [facility] Co de Phone Number [facility] [address] [place] [address] [phone] * HIV-1/2 Antigen and Antibodies, Fourth Generation, with Reflexes (02/11/2025 10:06 AM EST) HIV AB/AG Nonreactive Nonreactive [facility] Comment:HIV-1 p24 Ag and/or HIV-1/HIV-2 Ab not detected.A test result that is nonreactive does not exclude thepossibility of exposure to or infection with HIV-1 and/orHIV-2. Nonreactive results in this assay for individualswith prior exposure to HIV-1 and/or HIV-2 may be due toantigen and antibody levels that are below the limit ofdetection of this assay.The [employer] HIV Ag/Ab Combo assay result andsupplemental assay results should be interpreted inconjunction with the patient's clinical presentation,history and other laboratory results. If the results areinconsistent with clinical evidence, additional testing issuggested to confirm the result. Blood Venous blood specimen / Unknown 02/11/2025 10:06 AM EST 02/11/2025 1:12 PM EST Dilia Greer NP LAB BLOOD ORDERABLES Final Resu lt [facility] [address] [place] [phone] * (ABNORMAL) Lipid Panel, Standard (02/11/2025 10:06 AM EST) Triglycerides 372(H) <150 mg/dL [facility] Comment:Desirable Triglyceri de: less than 150 mg/dLBorderline High Triglyceride 150-199 mg/dLHigh Triglyceride: 200-499 mg/dLVery High Triglyceride: greater than or equal to 5OO mg/dL Cholesterol 284(H) <200 mg/dL [facility] Comment:Desirable Cholestero l: less than 200 mg/dLBorderline High Cholesterol: 200-239 mg/dLHigh Cholesterol: greater than 239 mg/dL LDL Cholesterol Calculated 167(H) <100 mg/dL [facility] Comment:Desirable LDL: less than 100 mg/dLNear Optimal/Above Optimal LDL: 110- 129 mg/dLBorderline High LDL: 130-159 mg/dLHigh LDL: 160-189 mg/dLVery High LDL: greater than or equal to 190 mg/dL HDL Cholesterol 43 >40 mg/dL [facility] Comment:Desirable HDL: great er than 40 mg/dL Note: This HDL assay may give artificially low results in patients with liver disease. Blood Venous blood specimen / Unknown 02/11/2025 10:06 AM EST 02/11/2025 1:12 PM EST us Dilia Greer NP LAB BLOOD ORDERABLES Final Resu lt Performing Organization Address [facility] Co de Phone Number [facility] [address] [place] [phone] * POCT Rapid Influenza B MASSEY ID NOW (02/11/2025 9:58 AM EST) Influenza B Negative Negative, Indeterminate [facility] QC Media Lot # [id number] [facility] Lot# Expiration Date [facility] Swab 02/11/2025 9:58 AM EST us Dilia Greer [facility] POINT OF CARE TEST ENTER/EDIT O RDERABLES Final Result Performing Organization Address [facility] Co de Phone Number [facility] [address] [place] [phone] * POCT Rapid Influenza A MASSEY ID NOW (02/11/2025 9:57 AM EST) Influenza A Negative Negative, Indeterminate [facility] QC Media Lot # [id number] [facility] Lot# Expiration Date [facility] Swab 02/11/2025 9:57 AM EST us Dilia Greer CR[facility] POINT OF CARE TEST ENTER/EDIT O RDERABLES Final Result Performing Organization Address City/[facility]/ZIP Co de Phone Number [facility] [address] [place] [address] [phone] * POCT Rapid Covid-19 MASSEY ID NOW (02/11/2025 9:57 AM EST) Pathologist [facility] Coronavirus Antigen PCR Negative Negative, Indeterminate, None Detected, Trace, 3+, Specimen unsatisfactory for evaluation, Weakly Positive, 1+, 2+ QC Media Lot # [id number] Lot# Expiration Date Swab 02/11/2025 9:57 AM EST Dilia Greer [facility] POINT OF CARE TEST ENTER/EDIT O RDERABLES Final Result * Strep A Nucleic Acid (02/10/2025 11:18 AM EST) Only the most recent of2 resultswithin the time period is included. Pathologist [facility] IDNOW SERIAL# [id number] [facility] Strep A Nucleic Acid Negative Negative [facility] Comment:All test results mus t be correlated with clinical findings.This test has not been evaluated for monitoring treatment ofinfection.Additional follow-up testing using the culture method isrequired if the result is negative and clinical symptomspersist, or in the event of an acute rheumatic feveroutbreak. 02/10/2025 11:1 8 AM EST 02/10/2025 11:21 AM EST Generic External Data Provider LAB MICROBIOLOGY - GENERAL ORDERABLES Final Result Performing Organization Address City/[facility]/ZIP Co de Phone Number [facility] [address] [place] [address] [phone] * SARS-CoV-2 RNA, Influenza A/B, and RSV RNA, Ql NAAT (02/10/2025 11:18 AM EST) Pathologist [facility] Influenza A PCR NEGATIVE Negative [facility] Influenza B PCR NEGATIVE Negative [facility] Resp Syncy Virus RNA Qual PCR NEGATIVE Negative [facility] SARS COV2 PCR NEGATIVE Negative [facility] Comment:All test results mus t [...] use by authorized laboratories.Testing performed on the [employer] GeneXpert utilizingreal-time RT-PCR.All SARS CoV2 and positive influenza A/B results arereported to [facility]. 02/10/2025 11:1 8 AM EST 02/10/2025 11:21 AM EST Generic External Data Provider LAB MICROBIOLOGY - GENERAL ORDERABLES Final Result Performing Organization Address City/State/[facility] Co de Phone Number [facility] [address] [place] [phone] * XR Foot 3+ Views Right (02/10/2025 11:10 AM EST) Anatomical Region Laterality Modality Lower Extremities, Foot Right Radiogra phic Imaging 02/10/2025 11:1 0 AM EST Narrative 02/10/2025 11:37 AM EST [address] [address] XRay Report Signed Patient: Jesse Trevino MR#: [id number] 76 : 1980 Acct:[id number] Age/Sex: 44 / M ADM Date: 02/10/25 Loc: HO.ED Attending Dr: Ordering Physician: Geovanny Rich Date of Service: 02/10/25 Procedure(s): XR foot RT min 3V Accession Number(s): [id number] cc: Geovanny Rich; [facility] Reason for Exam: right toe/foot pain EXAMINATION: [...] 02/10/25 1134 DD/ 1110 TD/TT: 02/10/25 1111 Bus Girl: Procedure Note Donotuseinterpreter, Image - 02/10/2025 [place] [address] XRay Report Signed Patient: Mell Trevino#: [id number] 76 : 1980Acct:[id number] Age/Sex: 44 / MADM Date: 02/10/25 Loc: .ED Attending Dr: Ordering Physician: Geovanny Rich Date of Service: 02/10/25 Procedure(s): XR foot RT min 3V Accession Number(s): [id number] cc: Geovanny Rich; [facility] Reason for Exam: right toe/foot pain EXAMINATION: [...] 02/10/25 1134 DD/ 1110 TD/TT: 02/10/25 1111 Bus Girl: us [facility] External Provider IMG XR PROCEDURES Final Result * XR Chest 1 View (02/10/2025 11:08 AM EST) Anatomical Region Laterality Modality Chest Radiographic Lori ging 02/10/2025 11:0 8 AM EST Narrative 02/10/2025 11:39 AM EST [address] [address] XRay Report Signed Patient: Jesse Trevino MR#: [id number] 76 : 1980 Acct:[id number] Age/Sex: 44 / M ADM Date: 02/10/25 Loc: HO.ED Attending Dr: Ordering Physician: Generic ED Physician Date of Service: 02/10/25 Procedure(s): XR chest 1V Accession Number(s): [id number] cc: Generic ED Physician; [facility] Reason for Exam: COUGH EXAMINATION: XR CHEST [...] Gideon Stallings MD 02/10/2025 11:36 AM EST Dictated By: Gideon Stallings MD Signed By: <Electronically signed by Gideon Stallings MD in [place]> 02/10/25 1136 DD/ 1108 TD/TT: 02/10/25 1111 Bus Girl: Procedure Note Donotuseinterpreter, Image - 02/10/[address] [address] XRay Report Signed Patient: Jesse TrevinoMR#: [id number] 76 : 1980Acct:[id number] Age/Sex: 44 / MADM Date: 02/10/25 Loc: HO.ED Attending Dr: Ordering Physician: Generic ED Physician Date of Service: 02/10/25 Procedure(s): XR chest 1V Accession Number(s): [id number] cc: Generic ED Physician; [facility] Reason for Exam: COUGH EXAMINATION: XR CHEST [...] by: Gideon Stallings MD 02/10/2025 11:36 AM [facility] Dictated By: Gideon Stallings MD Signed By: <Electronically signed by Gideon Stallings MD in OV> 02/10/25 1136 DD/ 1108 TD/TT: 02/10/25 1111 Bus Girl: [facility] External Provider IMG XR PROCEDURES Final Result * CBC auto differential (12/22/2024 1:55 PM EDT) White Blood Count 5.9 4.8 - 10.8 X10*3/uL [facility] Red Blood Count 5.63 4.60 - 5.80 X10*6/uL [facility] Hemoglobin 16.2 14.0 - 18.0 g/dl [facility] Hematocrit 48.9 42.0 - 52.0 % [facility] Mean Corpuscular Volume 86.9 80.0 - 98.0 fL [facility] Mean Corpuscular Hemoglobin 28.8 27.0 - 33.0 pg [facility] Mean Corpuscular HGB Conc 33.1 31.0 - 36.0 g/dl [facility] Red Cell Distribution Width 13.6 11.0 - 16.0 % [facility] Platelet Count 186 160 - 400 X10*3/uL [facility] Mean Platelet Volume 9.7 9.4 - 12.4 fL [facility] Neutrophils Percent Auto 68.0 45 - 73 % [facility] Imm Gran Pct Auto 0.2 0.0 - 0.4 % [facility] Lymphocytes Percent Auto 25.1 20 - 40 % [facility] Monocytes Percent Auto 6.0 2 - 11 % [facility] Eosinophils Percent Auto 0.2 0 - 4 % [facility] Basophils Percent Auto 0.5 0 - 2 % [facility] NRBC Pct Auto 0.0 0.0 - 0.2 /100WBC [facility] Neutrophils Absolute Auto 4.0 2.0 - 8.3 x10*3/uL [facility] Imm Gran Abs Auto 0.01 0.00 - 0.03 X10*3/uL [facility] Lymphocytes Absolute Auto 1.5 1.2 - 4.9 X10*3/uL [facility] Monocytes Absolute Auto 0.4 0.1 - 1.2 X10*3/uL [facility] Eosinophils Absolute Auto 0.0 0.0 - 0.4 X10*3/uL [facility] Basophils Absolute Auto 0.0 0.0 - 0.2 X10*3/uL [facility] NRBC Abs Auto 0.000 0.0 - 0.012 X10*3/uL [facility] 12/22/2024 1:55 PM EDT 12/22/2024 1:55 PM EDT us Generic External Data Provider LAB BLOOD ORDERAB LES Final Result [facility] [address] [place] [phone] * (ABNORMAL) Comprehensive Metabolic Panel (12/22/2024 1:55 PM EDT) Sodium 143 135 - 145 mmol/L [facility] Potassium 4.4 3.3 - 5.1 mmol/L [facility] Chloride 107 96 - 108 mmol/L [facility] Carbon Dioxide 29 22 - 29 mmol/L [facility] Anion Gap 11(L) 12 - 20 [facility] Urea Nitrogen (BUN) 14 9 - 16 mg/dL [facility] Creatinine, Serum 1.20 0.5 - 1.4 mg/dL [facility] Creatinine Clr Calc Pharmacy 73.4 [facility] Comment:eGFR (calculated fro m the MDRD study equation) and eCrCl(calculated from the Cockcroft-Gault equation) are based ondifferent parameters and may not yield comparable results.If eCrCl result is absurd, please check patient'sheight/weight. Estimated Glomerular Filt Rate >60 [facility] Comment:Chronic Kidney Disea se: Estimated GFR < 60 mL/min/1.67y0Fnsjwq Kidney Disease: Estimated GFR < 15 mL/min/1.73m2 Glucose 95 60 - 115 mg/dL [facility] Calcium 9.5 8.4 - 10.2 mg/dL [facility] Bilirubin, Total 0.3 0.0 - 1.0 mg/dL [facility] Aspartate Amino Transferase 23 5 - 37 U/L [facility] Alanine Aminotransferase 29 0 - 40 U/L [facility] Total Protein 7.0 6.5 - 8.0 g/dL [facility] Albumin Level 4.3 3.5 - 5.0 g/dL [facility] Alkaline Phosphatase 61 39 - 117 U/L [facility] 12/22/2024 1:55 PM EDT 12/22/2024 1:55 PM EDT us Generic External Data Provider LAB BLOOD ORDERAB LES Final Result [facility] [address] [place] [phone] * Influenza A B2 ID NOW ([facility]sey) (12/22/2024 1:52 PM EDT) IDNOW SERIAL# [id number] [facility] Influenza A Negative Negative [facility] Influenza B2 Negative Negative [facility] Influenza A B2 Note See Note [facility] Comment:The Massey ID NOW In [...] LAB MICROBIOLOGY - GENERAL ORDERABLES Final Result [facility] [address] [place] [phone] * COVID-19 ID NOW ([place]Y) (12/22/2024 1:52 PM EDT) IDNOW SERIAL# [id number] [facility] COVID-19 TEST Negative Negative [facility] COVID-19 NOTE See Note [facility] Comment: Results are for the identification of SARS-CoV2 RNA. TheSARS-CoV2 RNA is generally detectable in respiratory samplesduring the acute phase of infection. Positive results areindicative of the presence of SARS-CoV-2 RNA; clinicalcorrelation with patient history and other diagnosticinformation is necessary to determine patient infectionstatus. Positive results do not rule out bacterial infectionor co- infection with other viruses.Testing facilities within the [facility] and itsterritories are required to report all [...] use by authorized laboratories.Testing performed on the [place] ID NOW utilizing NAAT. 12/22/2024 1:52 PM EDT 12/22/2024 1:55 PM EDT us Generic External Data Provider LAB MOLECULAR REY GNOSTICS ORDERABLES Final Result Performing Organization Address City/State/[facility] Co de Phone Number [facility] [address] [place] [phone] * XR Chest 2 Views (12/17/2024 9:28 PM EDT) Anatomical Region Laterality Modality Chest Radiographic Lori ging 12/17/2024 9:28 PM EDT Narrative 12/17/2024 9:30 PM EDT [address] [address] XRay Report Signed Patient: Jesse Trevino MR#: [id number] 76 : 1980 Acct:[id number] Age/Sex: 44 / M ADM Date: 12/17/24 Loc: HO.ED Attending Dr: Ordering Physician: Jackie Plascencia NP Date of Service: 12/17/24 Procedure(s): XR chest 2V Accession Number(s): [id number] cc: [facility]; Jackie Plascencia NP Reason for Exam: cough, [...] in OV> 12/17/242129 DD/ 27 TD/TT: 12/17/242127 Bus Girl: Procedure Note [place], Image - 12/18/[address] [address] XRay Report Signed Patient: Mell Trevino#: [id number] 76 : 1980Acct:[id number] Age/Sex: 44 / MADM Date: 12/17/24 Loc: HO.ED Attending Dr: Ordering Physician: Jackie Plascencia NP Date of Service: 12/17/24 Procedure(s): XR chest 2V Accession Number(s): [id number] cc: [facility]; Jackie Plascencia NP Reason for Exam: cough, [...] in OV> 12/17/242129 DD/ 27 TD/TT: 12/17/242127 Bus Girl: [facility] External Provider IMG XR PROCEDURES Edited Result - Final from Last 3 Months Insurance [facility] C3 DENTAL-[facility] MEDICAID STAND ADULT Care Teams Dining Services Director Relationship Specialty Start Date End Date Dilia Greer NP [address] [place] [address] PCP - General Family Medicine 12/22/24
[2025-03-08 13:52] LABS: MANUAL DIFF FLAG NO
[2025-03-08 13:59] LABS: Hematocrit 52.6 % (42.0-52.0); Hemoglobin 17.5 g/dl (14.0-18.0); Imm Gran Abs Auto 0.01 X10*3/uL (0.00-0.03); Imm Gran Pct Auto 0.2 % (0.0-0.4); Lymphocytes Absolute Auto 1.6 X10*3/uL (1.2-4.9); Mean Corpuscular HGB Conc 33.3 g/dl (31.0-36.0); Mean Corpuscular Hemoglobin 28.7 pg (27.0-33.0); Mean Corpuscular Volume 86.2 fL (80.0-98.0); NRBC Abs Auto 0.000 X10*3/uL (0.0-0.012); NRBC Pct Auto 0.0 /100WBC (0.0-0.2); Platelet Count 189 X10*3/uL (160-400); Red Blood Count 6.10 X10*6/uL (4.60-5.80); White Blood Count 6.3 X10*3/uL (4.8-10.8)
[2025-03-08 14:33] LABS: Alanine Aminotransferase 54 U/L (0-40); Albumin Level 4.4 g/dL (3.5-5.0); Alkaline Phosphatase 62 U/L (39-117); Anion Gap 13 (12-20); Aspartate Amino Transferase 45 U/L (5-37); Blood Urea Nitrogen 15 mg/dL (9-16); Calcium 10.0 mg/dL (8.4-10.2); Carbon Dioxide 27 mmol/L (22-29); Chloride 105 mmol/L (96-108); Cholesterol 265 mg/dL (<200); Estimated Glomerular Filt Rate > 60; HDL Cholesterol 62 mg/dL (>40); Potassium 4.5 mmol/L (3.3-5.1); Sodium 140 mmol/L (135-145); Total Protein 7.3 g/dL (6.5-8.0); Triglycerides 288 mg/dL (<150)
== END 2025-03-08 11:45 | disposition home or self-care (01) ==
LOC: HO.HHCL 11:44
PROVIDERS: PCP Nurse Practitioner; Referring Provider Registered Nurse Psychiatric/Mental Health; Visit Provider Nurse Practitioner
DX: Z79.899 Other long term (current) drug therapy (principal); Z51.81 Encounter for therapeutic drug level monitoring
CPT/HCPCS: 36415; 80053; 80061; 82248; 84443; 85025